=== PATIENT | male | born 1970 | race Caucasian/White ===

== ENCOUNTER 2022-10-02 09:16 | Inpatient (IN) ==
[2022-10-02] MEDS ORDERED: MoRPHine SULFATE 4 MG/ML 1 ML CARP\\VIAL IV STA (09:44)
[2022-10-02] MEDS ORDERED: SODIUM CHLORIDE 0.9% 1000ML 1,000 ML IV ONE (09:44)
[2022-10-02] MEDS ORDERED: ONDANSETRON INJ 2 MG/ML 2 ML VIAL IV STA (09:44)
--- NOTE | 2022-10-02 09:45 | Emergency Department Note ---
Impression & Plan Abdominal pain, lower ED Provider Note INFORMANT: Patient ED PROVIDER(S): Chemo Alberts DO CHIEF COMPLAINT: lower abd pain, nausea, vomiting,diarrhea PLAN: Disposition: Home Outpatient prescription management: none Consult: I spoke with the hospitalist, who will see the patient for admission/observation and further evaluation and consultation. Also spoke with surgery service who evaluated the patient in the ED. MEDICAL DECISION MAKING: This is a 52-year-old male who presents to the ED with a chief complaint of lower abdominal pain. He states that he has had the pain for about 16 hours. Initially felt like it was left lower quadrant like his previous diverticulitis but is actually bilateral in the lower abdomen now. The patient also reports nausea, vomiting and diarrhea that started around 8 PM last night. His last episode of each was around 6 AM this morning. He states that he just wanted to make sure that nothing ruptured in his abdomen. He has no other specific complaints at this time. No fevers. No urinary symptoms. The patient's exam r eveals some tenderness in the bilateral lower quadrants. No rebound. His vital signs are normal. Afebrile. The patient's CBC shows a mild leukocytosis of 12.2. Chemistry panel showed no electrolyte abnormality or kidney dysfunction. Lipase was negative. CT scan suggest mild diverticulitis. 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 I did have general surgery see the patient. They evaluated the patient. They did not feel the patient needs surgery but recommended some IV antibiotics for a day or so. The patient is agreeable to this. I did speak to the medicine service who admit the patient for IV antibiotic. A dose of IV Zosyn was administered here. Triage Nursing notes reviewed. Vital Signs: reviewed Prior /Outside records reviewed: none Differential diagnosis: Diverticulitis, appendicitis, gastroenteritis, bowel perforation, other Diagnostics, as interpreted by me: 12 lead ECG: none Cardiac Monitoring ordered: none Medical decision rules: none Imaging studies: CT scan of the abdomen pelvis: Mild diverticulitis. Procedures: none. Critical care: none. HPI: See MDM above. PAST MEDICAL HISTORY: See Below PAST SURGICAL HISTORY: See Below SOCIAL HISTORY: See Below HOME MEDICATIONS: See Below ALLERGIES: See Below VITALS: See Below PHYSICAL EXAMINATION: See MDM for positive findings otherwise unremarkable. CONSTITUTIONAL/VITAL SIGNS: Reviewed GENERAL:done as appropriate INTEGUMENTARY: done as appropriate HEAD: done as appropriate EYES: done as appropriate RESPIRATORY: done as appropriate CARDIOVASCULAR:done as appropriate GI/ABDOMEN:done as appropriate EXTREMITIES: done as appropriate NEUROLOGICAL: done as appropriate PSYCHIATRIC:done as appropriate MUSCULOSKELETAL:done as appropriate TRIAGE NURSING DOCUMENTATION REVIEWED. Past Med/Surg History Social History Smoking Status: Never smoker Tobacco Type: Cigarettes Feels Safe at Home: Yes Results & Data (ED) Vital Signs Vital Signs - 24 hr 10/02/22 09:21 10/02/22 09:35 10/02/22 09:50 Temperature 37.0 C Temperature Source Skin Pulse Rate 94 H 80 Pulse Rate [Right Finger] 85 Pulse Rate from SpO2 Sensor Pulse Rhythm Regular Pulse Rhythm [Right Finger] Pulse Strength Normal Pulse Strength [Right Finger] Respiratory Rate 20 18 Respiratory Effort / Characteristics Non-Labored Spontaneous Non-Labored Spontaneous Respiratory Depth Normal Normal Respiratory Pattern Regular Regular Blood Pressure 120/73 Blood Pressure [Left Arm] 121/83 Blood Pressure Mean 88 Blood Pressure Mean [Left Arm] 95 Blood Pressure Position [Left Arm] Semi-fowlers Pulse Oximetry 99 99 Oxygen Delivery Method Room Air Room Air Sepsis Recent Fever Within 48 Hours No Sepsis New/Unexplained Change in Mental Status N/A Sepsis Action Taken by Nursing No Action Required 10/02/22 09:59 10/02/22 10:00 10/02/22 09:45 Temperature Temperature Source Pulse Rate 75 82 Pulse Rate [Right Finger] 77 Pulse Rate from SpO2 Sensor 86 Pulse Rhythm Regular Pulse Rhythm [Right Finger] Regular Pulse Strength Pulse Strength [Right Finger] Normal Respiratory Rate 18 18 21 Respiratory Effort / Characteristics Non-Labored Spontaneous Respiratory Depth Normal Respiratory Pattern Regular Blood Pressure Blood Pressure [Left Arm] 110/68 Blood Pressure Mean Blood Pressure Mean [Left Arm] 82 Blood Pressure Position [Left Arm] Lying Pulse Oximetry 100 98 90 Oxygen Delivery Method Room Air Room Air Sepsis Recent Fever Within 48 Hours Sepsis New/Unexplained Change in Mental Status Sepsis Action Taken by Nursing 10/02/22 10:00 10/02/22 10:00 10/02/22 10:30 Temperature Temperature Source Pulse Rate 76 88 Pulse Rate [Right Finger] Pulse Rate from SpO2 Sensor 76 84 Pulse Rhythm Pulse Rhythm [Right Finger] Pulse Strength Pulse Strength [Right Finger] Respiratory Rate 19 17 Respiratory Effort / Characteristics Respiratory Depth Respiratory Pattern Blood Pressure 110/68 Blood Pressure [Left Arm] Blood Pressure Mean 82 Blood Pressure Mean [Left Arm] Blood Pressure Position [Left Arm] Pulse Oximetry 98 100 Oxygen Delivery Method Sepsis Recent Fever Within 48 Hours Sepsis New/Unexplained Change in Mental Status Sepsis Action Taken by Nursing 10/02/22 11:01 10/02/22 11:30 10/02/22 12:00 Temperature Temperature Source Pulse Rate 90 82 78 Pulse Rate [Right Finger] Pulse Rate from SpO2 Sensor 87 78 Pulse Rhythm Pulse Rhythm [Right Finger] Pulse Strength Pulse Strength [Right Finger] Respiratory Rate 15 14 23 Respiratory Effort / Characteristics Respiratory Depth Respiratory Pattern Blood Pressure Blood Pressure [Left Arm] Blood Pressure Mean Blood Pressure Mean [Left Arm] Blood Pressure Position [Left Arm] Pulse Oximetry 99 97 Oxygen Delivery Method Sepsis Recent Fever Within 48 Hours Sepsis New/Unexplained Change in Mental Status Sepsis Action Taken by Nursing 10/02/22 12:30 Temperature Temperature Source Pulse Rate 76 Pulse Rate [Right Finger] Pulse Rate from SpO2 Sensor 76 Pulse Rhythm Pulse Rhythm [Right Finger] Pulse Strength Pulse Strength [Right Finger] Respiratory Rate 23 Respiratory Effort / Characteristics Respiratory Depth Respiratory Pattern Blood Pressure Blood Pressure [Left Arm] Blood Pressure Mean Blood Pressure Mean [Left Arm] Blood Pressure Position [Left Arm] Pulse Oximetry 98 Oxygen Delivery Method Sepsis Recent Fever Within 48 Hours Sepsis New/Unexplained Change in Mental Status Sepsis Action Taken by Nursing Laboratory Data 10/02/22 09:50 10/02/22 09:50 Lab Results 10/02/22 10/02/22 Range/Units 09:50 09:50 WBC 12.21 H (4.8-10.8) K/ul RBC 5.01 (4.70-6.10) M/uL Hgb 15.8 (14.0-18.0) g/dl Hct 43.9 (42.0-52.0) % MCV 87.6 (80.0-100.0) fL MCH 31.5 (25.0-34.0) pg MCHC 36.0 (32.0-36.0) g/dL RDW Std Deviation 41.1 (36.4-46.3) fL RDW Coeff of Daniele 12.8 (11.5-14.5) % Plt Count 305 (130-400) K/uL MPV 9.3 L (9.4-12.4) fL Immature Gran % (Auto) 0.3 % Neut % (Auto) 93.3 % Lymph % (Auto) 1.8 % Zavala % (Auto) 4.4 % Eos % (Auto) 0.0 % Baso % (Auto) 0.2 % Neut # (Auto) 11.38 H (1.40-6.50) K/uL Lymph # (Auto) 0.22 L (1.2-3.4) K/uL Zavala # (Auto) 0.54 (0.11-0.59) K/uL Eos # (Auto) 0.00 (0-0.50) K/uL Baso # (Auto) 0.03 (0-0.2) K/uL Immature Gran # (Auto) 0.04 (0.01-0.20) K/uL Sodium 136 (136-145) mmol/L Potassium 4.3 (3.5-5.1) mmol/L Chloride 102 (98-107) mmol/L Carbon Dioxide 25 (21-32) mmol/L Anion Gap 9 (3-11) BUN 26 H (6-23) mg/dl Creatinine 1.26 (0.6-1.4) mg/dl Est Cr Clr Drug Dosing 68.6 ml/min Est GFR ( Amer) 75.5 ml/min Est GFR (Non-Af Amer) 65.1 ml/min BUN/Creatinine Ratio 20.6 H (10-20) Glucose 130 H (70-99(Fasting)) mg/dl Calcium 9.1 (8.5-10.1) mg/dl Total Bilirubin 0.9 (0.2-1.0) mg/dl AST 14 (13-39) U/L ALT 14 (7-52) U/L Alkaline Phosphatase 41 (34-104) U/L Total Protein 7.4 (6.0-8.3) gm/dl Albumin 4.5 (3.4-5.0) gm/dl Globulin 2.9 (2.5-4.0) gm/dl Albumin/Globulin Ratio 1.6 (0.9-2) Lipase 12 (11-82) U/L Administered Medications Discontinued Medications Sodium Chloride (Nss 1000ml) 1,000 mls @ 999 mls/hr IV .Q1H1M ONE Stop: 10/02/22 10:44 Last Infusion: 10/02/22 10:58 Dose: 0 mls/hr Documented By: Admin: 10/02/22 09:56 Dose: 999 mls/hr Documented By: Ioversol (Optiray 350 100ml) 89 ml IV ONCE ONE Stop: 10/02/22 11:40 Last Admin: 10/02/22 11:40 Dose: 89 ml Documented By: BILL Morphine Sulfate (Morphine Sulfate 4 Mg/Ml 1 Ml Carp\Vial) 4 mg IV NOW STA Stop: 10/02/22 09:45 Last Admin: 10/02/22 09:56 Dose: 4 mg Documented By: Ondansetron HCl (Ondansetron Inj 2 Mg/Ml 2 Ml Vial) 4 mg IV NOW STA Stop: 10/02/22 09:45 Last Admin: 10/02/22 09:56 Dose: 4 mg Documented By: Imaging Data Radiologist's Impression: Abdomen/Pelvis CT 10/02/22 09:[address] WITH IV CONTRAST CT DOSE: 323.43 mGy.cm HISTORY: Acute lower abdominal pain patient with history of colonic diverticulosis lower abd pain b/l TECHNIQUE: Multiaxial CT images of the abdomen and pelvis were performed following the IV administration of 89 cc of Optiray, A dose lowering technique was utilized adhering to the principles of ALARA. COMPARISON STUDY: None. FINDINGS: Clear lung bases. Unremarkable spleen, pancreas, gallbladder, adrenal glands and liver. Patency of the hepatic and portal veins. A millimeter cyst within the inferior pole left kidney. No hydronephrosis. Mild urinary bladder wall thickening with partial distention. Mild prostamegaly. Mild atherosclerosis of the abdominal aorta without aneurysm. No lymphadenopathy. Surgical clips of the scrotum. Trace free pelvic fluid. Colonic diverticulosis. Mild wall thickening the sigmoid colon with trace adjacent inflammatory stranding. There is a small focus of air within the sigmoid colon contiguous with a fluid-filled small sinus tract, image 286. No drainable fluid collection. Scattered small bowel air-fluid levels with a few mildly dilated loops measuring up to 3.3 cm. The appendix appears noninflamed. Unremarkable soft tissues. Severe L5-S1 intervertebral disc space narrowing. There is no acute fracture. IMPRESSION: 1. Mild acute diverticulitis with a small focus of extraluminal gas contiguous with a small sinus tract within the sigmoid mesocolon indicating acute on chronic disease. No drainable abscess. 2. Mildly dilated loops of small bowel with air-fluid levels may represent a reactive ileus or nonspecific enteritis. ACT 112: Negative or not required by law. The above report was generated using voice recognition software. It may contain grammatical, syntax or spelling errors. Electronically signed by: Zeke Levin M.D. 10/02/2022 12:31 PM Discharge Plan Visit Data Chief Complaint: Abdominal Pain Stated Complaint: ABDOMINAL PAIN,VOMITING,DEHYDRATION ED Provider: Chemo Alberts Discharge Problem: Abdominal pain, lower Patient Disposition: Being Evaluated by Hospitalist Forms Stand Alone Forms: [facility] Referrals Referrals: Leo Clements MD [Physician] -
[2022-10-02 10:38] LABS: Hematocrit (blood only) 43.9 % (42.0-52.0); Hemoglobin 15.8 g/dl (14.0-18.0); Mean Corpuscular Hemoglobin 31.5 pg (25.0-34.0); Mean Corpuscular Volume 87.6 fL (80.0-100.0); Mean Platelet Volume 9.3 fL (9.4-12.4); Platelet Count 305 K/uL (130-400); RDW Coefficient of Variation 12.8 % (11.5-14.5); RDW Standard Deviation 41.1 fL (36.4-46.3); Red Blood Count 5.01 M/uL (4.70-6.10); White Blood Count 12.21 K/ul (4.8-10.8)
[2022-10-02 10:55] LABS: Albumin Globulin Ratio 1.6 (0.9-2); Albumin Level 4.5 gm/dl (3.4-5.0); BUN Creatinine Ratio 20.6 (10-20); Basophils # (auto) 0.03 K/uL (0-0.2); Basophils % (auto) 0.2 %; Bilirubin,Total 0.9 mg/dl (0.2-1.0); Calcium 9.1 mg/dl (8.5-10.1); Creatinine Clr Calc Pharmacy 68.6 ml/min; Est GFR (African American) 75.5 ml/min; Est GFR (Non-African American) 65.1 ml/min; Globulin 2.9 gm/dl (2.5-4.0); Immature Granulocytes # (auto) 0.04 K/uL (0.01-0.20); Immature Granulocytes % (auto) 0.3 %; Lymphocytes # (auto) 0.22 K/uL (1.2-3.4); Lymphocytes % (auto) 1.8 %; Monocytes # (auto) 0.54 K/uL (0.11-0.59); Monocytes % (auto) 4.4 %; Neutrophils # (auto) 11.38 K/uL (1.40-6.50); Neutrophils % (auto) 93.3 %; Potassium 4.3 mmol/L (3.5-5.1); Total Protein 7.4 gm/dl (6.0-8.3)
[2022-10-02] MEDS ORDERED: OPTIRAY 350 100ml IV ONE (11:39)
--- NOTE | 2022-10-02 12:32 | CT Scan Report ---
ABDOMEN AND PELVIS CT WITH IV CONTRAST CT DOSE: 323.43 mGy.cm HISTORY: Acute lower abdominal pain patient with history of colonic diverticulosis lower abd pain b/ l TECHNIQUE: Multiaxial CT images of the abdomen and pelvis were performed following the IV administrat ion of 89 cc of Optiray, A dose lowering technique was utilized adhering to the principles of ALARA. COMPARISON STUDY: None. FINDINGS: Clear lung bases. Unremarkable spleen, pancreas, gallbladder, adrenal glands and liver. Pat ency of the hepatic and portal veins. A millimeter cyst within the inferior pole left kidney. No hydr onephrosis. Mild urinary bladder wall thickening with partial distention. Mild prostamegaly. Mild ath erosclerosis of the abdominal aorta without aneurysm. No lymphadenopathy. Surgical clips of the scrot um. Trace free pelvic fluid. Colonic diverticulosis. Mild wall thickening the sigmoid colon with trace ad jacent inflammatory stranding. There is a small focus of air within the sigmoid colon contiguous with a fluid-filled small sinus tract, image 286. No drainable fluid collection. Scattered small bowel ai r-fluid levels with a few mildly dilated loops measuring up to 3.3 cm. The appendix appears noninflam ed. Unremarkable soft tissues. Severe L5-S1 intervertebral disc space narrowing. There is no acute fr acture. IMPRESSION: 1. Mild acute diverticulitis with a small focus of extraluminal gas contiguous with a small sinus tra ct within the sigmoid mesocolon indicating acute on chronic disease. No drainable abscess. 2. Mildly dilated loops of small bowel with air-fluid levels may represent a reactive ileus or nonspe cific enteritis. ACT 112: Negative or not required by law. The above report was generated using voice recognition software. It may contain grammatical, syntax o r spelling errors. Electronically signed by: Zeke Levin M.D. 10/02/2022 12:31 PM
[2022-10-02] MEDS ORDERED: PIPERACILLIN/TAZOBACTAM 4.5 GM/120 ML BAG IV ONE (13:32)
--- NOTE | 2022-10-02 14:14 | XRay Report ---
SINGLE VIEW CHEST CLINICAL HISTORY: Respiratory illness FINDINGS: An AP, portable, upright chest radiograph is obtained. No prior studies are available for c omparison at the time of dictation. The cardiomediastinal silhouette is unremarkable. The lungs and p leural spaces are clear. No pneumothorax is seen. The bony thorax is grossly intact. IMPRESSION: No active disease in the chest. ACT 112: Negative or not required by law. Electronically signed by: Albino Galindo M.D. 10/02/2022 2:13 PM
--- NOTE | 2022-10-02 14:27 | History & Physical Report ---
Date of Service October 02, 2022 Assessment & Plan (1) Acute diverticulitis: (2) Abdominal pain, lower: Plan: This is a 52-year-old male with PMH of GERD, history of diverticulosis, depression and other medical problems as below who presents with lower abdominal pain since yesterday and was found to have acute diverticulitis. Nausea, vomiting, diarrhea and lower abdominal pain since last evening VSS, afebrile, mild leukocytosis of 12.21k CT abd/pelvis with diverticulitis with extraluminal gas and possible sinus tract to mesocolon. Also possible reactive ileus vs nonspecific enteritis Evaluated by general surgery given abnormal CT findings of extraluminal gas- recommend admission for continued IV abx, NPO for now but plan to advance diet to clears in AM Continue Zosyn, NPO for now, gentle IV fluids, pain control with schedyled IV Tylenol, trying to limit narcotic use given possible ileus Currently scheduled for outpatient colonoscopy at the end of October with Dr. Amin that will need to be delayed (3) Insomnia: Plan: Zolpidem HS PRN DVT Ppx: SQ lovenox Code status: FULL PCP: BALJINDER Bahena Dispo: Admitted to med/surg Patient seen in collaboration with Dr. Kenendy. Please see addendum. A total of 60 minutes were spent with greater than 50% of that time face to face with the patient, personally reviewing all current laboratories, imaging studies, past medication reconciliation, outpatient chart review, and discussion with specialists to collaborate care for the patient with attending and utilization of translation services. Please see attending documentation for corrections and/or additions. History of Present Illness Chief Complaint: Lower abdominal pain Primary Care Provider: Shawanda Murillo PA-C This is a 52-year-old male with PMH of GERD, history of diverticulosis, depression and other medical problems as below who presents with lower abdominal pain since yesterday. Pain is located mostly in left lower abdomen described as sharp but has since started to radiate towards right as well and is now across lower abdomen. Associated with nausea, multiple bouts of emesis overnight and diarrhea. Denies any melena or hematochezia. Last episode of vomiting and diarrhea occurred this morning at 5 AM. History of diverticulitis in the past but is usually more mild and he can stay home with symptoms resolving with clear liquid diet. However due to severity of pain as well as persistent nausea and vomiting, patient presented to ED for further evaluation. Pain improved to 2/10 after morphine. No longer experiencing nausea. Recent life stressors with kids returning to college and admittedly has not slept much in the past 3 nights. Denies any fever, chills, lightheadedness, headache, chest pain, shortness of breath, dysuria or constipation. Only medication is trazodone at night for sleep. Vapes marijuana. Allergies Allergy/AdvReac Type Severity Reaction Status Date / Time No Known Allergies Allergy Verified 10/02/22 19:48 Home Medications Medication Instructions Recorded Confirmed Type trazodone 50 mg tablet 50 mg PO UD 10/02/22 10/02/22 History Past Med/Surg History Medical History (Updated 10/02/22 @ 15:49 by Marion Sawyer PA-C) Depression GERD (gastroesophageal reflux disease) Insomnia Surgical History History of colonoscopy with polypectomy Family History Other Diabetes Social History (Updated 10/02/22 @ 15:47 by Marion Sawyer PA-C) Smoking Status: Never smoker Tobacco Type: Cigarettes and Smokeless Tobacco (Dip or Chew) Second Hand Exposure: No; Do You Dip or Chew Tobacco: No; Tobacco Cessation Education Requested by Patient: No Hx Alcohol Use: No Hx Substance Use: Yes Prescribed Medications: Marijuana Last Used Substance: Days (ago) Preferred Language: Lithuanian Communication Ability: Effective Charity Fundraiser Required: No Beliefs That Will Affect Care: None Current Living Situation: Family Other Information That Helps Us Care for You: No Feels Safe at Home: Yes Safety Concerns: Feels Safe At This Time Assistive Devices: None Review of Systems Review of Systems: At least ten systems reviewed and negative except as noted in the HPI. Physical Exam Physical Exam: General Appearance: WD/WN, vitals as above, NAD, lying in bed, appears anxious Head: normocephalic, atraumatic Eyes: normal inspection, PERRL, conjunctivae normal, anicteric sclerae ENT: external ear and nose normal, oropharynx normal Neck: normal visual inspection, trachea midline, no thyromegaly Respiratory: normal respiratory effort, lungs clear to auscultation, no wheeze, rales, rhonchi. No accessory muscle use Cardiovascular: regular rate, rhythm, no murmur, normal peripheral pulses, no BLE edema. Vessels: no JVD Chest: normal inspection of chest Abdomen/GI: hypoactive bowel sounds, soft, TTP across lower abdomen, no hepatosplenomegaly Extremities/Musculoskeletal: no cyanosis or clubbing, extremities motor strength 5/5 Neurologic: PERRL, EOMI, accommodation nl, no face palsy, no dysarthria, CN's II-XI intact bilaterally and moves all extremities Psychiatric: A+Ox3, euthymic affect Skin: no rashes, normal color, warm/dry Results & Data Results & Data Vital Signs (Past 12 Hours) Vital Signs Temp Pulse Pulse Resp BP BP Pulse Ox 10/02/22 12:30 76 23 98 10/02/22 12:00 78 23 97 10/02/22 11:30 82 14 10/02/22 11:01 90 15 99 10/02/22 10:30 88 17 100 10/02/22 10:00 76 19 98 10/02/22 10:00 110/68 10/02/22 09:45 82 21 90 10/02/22 10:00 77 18 110/68 98 10/02/22 09:59 75 18 100 10/02/22 09:50 80 10/02/22 09:35 85 18 121/83 99 10/02/22 09:21 37.0 C 94 H 20 120/73 99 O2 Del Method 10/02/22 12:30 10/02/22 12:00 10/02/22 11:30 10/02/22 11:01 10/02/22 10:30 10/02/22 10:00 10/02/22 10:00 10/02/22 09:45 10/02/22 10:00 Room Air 10/02/22 09:59 Room Air 10/02/22 09:50 10/02/22 09:35 Room Air 10/02/22 09:21 Room Air Laboratory Results Short CBC 10/02/22 Range/Units 09:50 WBC 12.21 H (4.8-10.8) K/ul Hgb 15.8 (14.0-18.0) g/dl Hct 43.9 (42.0-52.0) % Plt Count 305 (130-400) K/uL BMP 10/02/22 09:50 Sodium 136 Potassium 4.3 Chloride 102 Carbon Dioxide 25 BUN 26 H Creatinine 1.26 Glucose 130 H Calcium 9.1 Liver Function 10/02/22 Range/Units 09:50 Total Bilirubin 0.9 (0.2-1.0) mg/dl AST 14 (13-39) U/L ALT 14 (7-52) U/L Alkaline Phosphatase 41 (34-104) U/L Albumin 4.5 (3.4-5.0) gm/dl Diagnostic Findings Abdomen/Pelvis CT 10/02/22 09:[address] WITH IV CONTRAST CT DOSE: 323.43 mGy.cm HISTORY: Acute lower abdominal pain patient with history of colonic diverticulosis lower abd pain b/l TECHNIQUE: Multiaxial CT images of the abdomen and pelvis were performed following the IV administration of 89 cc of Optiray, A dose lowering technique was utilized adhering to the principles of ALARA. COMPARISON STUDY: None. FINDINGS: Clear lung bases. Unremarkable spleen, pancreas, gallbladder, adrenal glands and liver. Patency of the hepatic and portal veins. A millimeter cyst within the inferior pole left kidney. No hydronephrosis. Mild urinary bladder wall thickening with partial distention. Mild prostamegaly. Mild atherosclerosis of the abdominal aorta without aneurysm. No lymphadenopathy. Surgical clips of the scrotum. Trace free pelvic fluid. Colonic diverticulosis. Mild wall thickening the sigmoid colon with trace adjacent inflammatory stranding. There is a small focus of air within the sigmoid colon contiguous with a fluid-filled small sinus tract, image 286. No drainable fluid collection. Scattered small bowel air-fluid levels with a few mildly dilated loops measuring up to 3.3 cm. The appendix appears noninflamed. Unremarkable soft tissues. Severe L5-S1 intervertebral disc space narrowing. There is no acute fracture. IMPRESSION: 1. Mild acute diverticulitis with a small focus of extraluminal gas contiguous with a small sinus tract within the sigmoid mesocolon indicating acute on chronic disease. No drainable abscess. 2. Mildly dilated loops of small bowel with air-fluid levels may represent a reactive ileus or nonspecific enteritis. ACT 112: Negative or not required by law. The above report was generated using voice recognition software. It may contain grammatical, syntax or spelling errors. Electronically signed by: Zeke Levin M.D. 10/02/2022 12:31 PM Chest X-Ray 10/02/22 13:45 SINGLE VIEW CHEST CLINICAL HISTORY: Respiratory illness FINDINGS: An AP, portable, upright chest radiograph is obtained. No prior studies are available for comparison at the time of dictation. The cardiomediastinal silhouette is unremarkable. The lungs and pleural spaces are clear. No pneumothorax is seen. The bony thorax is grossly intact. IMPRESSION: No active disease in the chest. ACT 112: Negative or not required by law. Electronically signed by: Albino Galindo M.D. 10/02/2022 2:13 PM Code Status & VTE Plan VTE Prophylaxis Plan VTE Prophylaxis will be ordered: Yes Supervising Physician Co-Signing Physician Notes I have seen and examined the patient and have discussed the case with the provider above. I agree with the assessment and plan as stated. 52 yo M with severe lower abdominal pain admitted for acute diverticulitis, which he reports having in the past. He was vomiting, but is feeling better with limited to no food. Surgery saw him for a finding of extraluminal gas and possible sinus tract to mesocolon seen on imaging. He doesn't appears sepsis, and doesn't appear to have peritonitis. He reports feeling dehydrated and was trying to "flush out his system yesterday" with oral fluids and Metamucil, which he re ports likely contributed to making him sick. He reports feeling better with the intravenous fluids. Physical exam reveals a hemodynamically stable and afebrile man in NAD. Pulmonary auscultation is clear throughout and cardiac exam reveals S1/2 heard without m/g/r. He has no edema and examines as euvolemic to dry. Abdomen is tender in suprapubic region. There is no distension. 52 yo M with acute diverticulitis with microperforation. Agree with bowel rest, IVF, IV antibiotics and appreciate surgery recommendations. Reassess in am in order to consider to advance diet. DO Brent
--- NOTE | 2022-10-02 14:32 | Surgery Consultation ---
Date of Consultation October 02, 2022 Assessment & Plan (1) Acute diverticulitis: 52 year-old male with less than 24 hours history of severe lower bilateral abdominal pain with nausea, vomiting and diarrhea with CT scan showing diverticulitis with extraluminal gas and possible sinus tract to mesocolon. Mild leukocytosis of 12k, afebrile, abdomen soft, tender bilateral lower quadrants without peritonitis. Given the evidence of extraluminal gas, severe pain prior to presentation to ER, and tenderness on exam discussed with patient option of observation in hospital with at least 24 hours of IV antibiotics vs outpatient treatment with oral abx for 14 days. He would like to stay for IV antibiotics given the severity last evening. Given the microperforation with extraluminal gas believe this is appropriate course. Can likely start advancing diet tomorrow morning with clear liquids. Will need his outpatient colonoscopy delayed as it is scheduled end october. Discussed with hospitalist Discussed with Dr. Silva who agrees with above. Plan I have seen and examined the patient agree with the above assessment and plan. He will be admitted to the hospital for IV antibiotics and observation. No surgical intervention is required at this time. History of Present Illness Reason for Consultation: Diverticulitis with foci of extraluminal gas Requesting Physician: Chemo Alberts MD Attending Physician: Chemo Alberts MD History of Present Illness Alfie is a 52 year-old male who presented to emergency room with complaint of nausea, vomiting, diarrhea, and severe abdominal pain that began last evening around 8 pm. Thought he had diverticulitis but was concerned about perforation given the severe pain. History of episode of diverticulitis a few years ago treated with oral antibiotics. Has colonoscopy scheduled for october at [facility] with Dr. Amin. He states that he was feeling fine prior to the vomiting and diarrhea last evening but did lose some of his appetite. No fever or chills. No chest pain or shortness of breath. No prior episodes of complicated diverticulitis. No blood thinning agents. CT scan of abdomen and pelvis showing mild sigmoid diverticulitis with foci of extraluminal gas and possible sinus tract to the mesocolon. He is currently rating his abdominal pain a 6/10 after Morphine administration. Pain was 10/10 severe last night. Allergies Allergy/AdvReac Type Severity Reaction Status Date / Time No Known Allergies Allergy Verified 10/02/22 19:48 Home Medications Medication Instructions Recorded Confirmed Type trazodone 50 mg tablet 50 mg PO UD 10/02/22 10/02/22 History Saccharomyces boulardii 250 mg 250 mg PO DAILY #10 caps 10/03/22 Rx capsule (Florastor) ciprofloxacin HCl 500 mg tablet 500 mg PO Q12H #20 tabs 10/03/22 Rx (Cipro) metronidazole 500 mg tablet 500 mg PO Q8H #30 tabs 10/03/22 Rx Patient History Medical History (Updated 10/02/22 @ 15:49 by aMrion Sawyer PA-C) Depression GERD (gastroesophageal reflux disease) Insomnia Surgical History History of colonoscopy with polypectomy Family History Other Diabetes Social History (Updated 10/02/22 @ 15:47 by Marion Sawyer PA-C) Smoking Status: Never smoker Tobacco Type: Cigarettes and Smokeless Tobacco (Dip or Chew) Second Hand Exposure: No; Do You Dip or Chew Tobacco: No; Tobacco Cessation Education Requested by Patient: No Hx Alcohol Use: No Hx Substance Use: Yes Prescribed Medications: Marijuana Last Used Substance: Days (ago) Preferred Language: Malay Communication Ability: Effective Soloist Dancer Required: No Beliefs That Will Affect Care: None Current Living Situation: Family Other Information That Helps Us Care for You: No Feels Safe at Home: Yes Safety Concerns: Feels Safe At This Time Assistive Devices: None Physical Exam Constitutional: WD/WN, vitals as above cooperative and comfortable; no acute distress, not ill appearing, not diaphoretic and not lethargic Neck: normal visual inspection and trachea midline Respiratory: normal respiratory effort, lungs clear to auscultation Cardiovascular: RRR, no murmur, no edema Gastrointestinal (Abdomen): Inspection/Auscultation: abdomen normal to inspection; abdomen not distended and no abdominal surgical scar Percussion/Palpation: + abdomen tender (bilateral lower quadrants), + guarding (voluntary on deep palpation lower quadrants) and abdomen soft; abdomen not firm no peritonitis or rebound Skin: no rashes, warm and dry Psychiatric: Orientation: alert and oriented x 3 Results & Data Vital Signs (Past 12 Hours) Vital Signs Temp Pulse Pulse Resp BP BP Pulse Ox 10/02/22 12:30 76 23 98 10/02/22 12:00 78 23 97 10/02/22 11:30 82 14 10/02/22 11:01 90 15 99 10/02/22 10:30 88 17 100 10/02/22 10:00 76 19 98 10/02/22 10:00 110/68 10/02/22 09:45 82 21 90 10/02/22 10:00 77 18 110/68 98 10/02/22 09:59 75 18 100 10/02/22 09:50 80 10/02/22 09:35 85 18 121/83 99 10/02/22 09:21 37.0 C 94 H 20 120/73 99 O2 Del Method 10/02/22 12:30 10/02/22 12:00 10/02/22 11:30 10/02/22 11:01 10/02/22 10:30 10/02/22 10:00 10/02/22 10:00 10/02/22 09:45 10/02/22 10:00 Room Air 10/02/22 09:59 Room Air 10/02/22 09:50 10/02/22 09:35 Room Air 10/02/22 09:21 Room Air Laboratory Results 10/02/22 10/02/22 10/02/22 Range/Units 14:10 09:50 09:50 WBC 12.21 H (4.8-10.8) K/ul RBC 5.01 (4.70-6.10) M/uL Hgb 15.8 (14.0-18.0) g/dl Hct 43.9 (42.0-52.0) % MCV 87.6 (80.0-100.0) fL MCH 31.5 (25.0-34.0) pg MCHC 36.0 (32.0-36.0) g/dL RDW Std Deviation 41.1 (36.4-46.3) fL RDW Coeff of Daniele 12.8 (11.5-14.5) % Plt Count 305 (130-400) K/uL MPV 9.3 L (9.4-12.4) fL Immature Gran % (Auto) 0.3 % Neut % (Auto) 93.3 % Lymph % (Auto) 1.8 % [place] % (Auto) 4.4 % Eos % (Auto) 0.0 % Baso % (Auto) 0.2 % Neut # (Auto) 11.38 H (1.40-6.50) K/uL Lymph # (Auto) 0.22 L (1.2-3.4) K/uL [place] # (Auto) 0.54 (0.11-0.59) K/uL Eos # (Auto) 0.00 (0-0.50) K/uL Baso # (Auto) 0.03 (0-0.2) K/uL Immature Gran # (Auto) 0.04 (0.01-0.20) K/uL Sodium 136 (136-145) mmol/L Potassium 4.3 (3.5-5.1) mmol/L Chloride 102 (98-107) mmol/L Carbon Dioxide 25 (21-32) mmol/L Anion Gap 9 (3-11) BUN 26 H (6-23) mg/dl Creatinine 1.26 (0.6-1.4) mg/dl Est Cr Clr Drug Dosing 68.6 ml/min Est GFR ( Amer) 75.5 ml/min Est GFR (Non-Af Amer) 65.1 ml/min BUN/Creatinine Ratio 20.6 H (10-20) Glucose 130 H (70-99(Fasting)) mg/dl Calcium 9.1 (8.5-10.1) mg/dl Total Bilirubin 0.9 (0.2-1.0) mg/dl AST 14 (13-39) U/L ALT 14 (7-52) U/L Alkaline Phosphatase 41 (34-104) U/L Total Protein 7.4 (6.0-8.3) gm/dl Albumin 4.5 (3.4-5.0) gm/dl Globulin 2.9 (2.5-4.0) gm/dl Albumin/Globulin Ratio 1.6 (0.9-2) Lipase 12 (11-82) U/L SARS-CoV-2, RNA, NAAT Pending Diagnostic Findings ABDOMEN AND PELVIS CT WITH IV CONTRAST CT DOSE: 323.43 mGy.cm HISTORY: Acute lower abdominal pain patient with history of colonic diverticulos is lower abd pain b/l TECHNIQUE: Multiaxial CT images of the abdomen and pelvis were performed following the IV administration of 89 cc of Optiray, A dose lowering technique was utilized adhering to the principles of ALARA. COMPARISON STUDY: None. FINDINGS: Clear lung bases. Unremarkable spleen, pancreas, gallbladder, adrenal glands and liver. Patency of the hepatic and portal veins. A millimeter cyst within the inferior pole left kidney. No hydronephrosis. Mild urinary bladder wall thickening with partial distention. Mild prostamegaly. Mild atherosclerosis of the abdominal aorta without aneurysm. No lymphadenopathy. Surgical clips of the scrotum. Trace free pelvic fluid. Colonic diverticulosis. Mild wall thickening the sigmoid colon with trace adjacent inflammatory stranding. There is a small focus of air within the sigmoid colon contiguous with a fluid-filled small sinus tract, image 286. No drainable fluid collection. Scattered small bowel air-fluid levels with a few mildly dilated loops measuring up to 3.3 cm. The appendix appears noninflamed. Unremarkable soft tissues. Severe L5-S1 intervertebral disc space narrowing. There is no acute fracture. IMPRESSION: 1. Mild acute diverticulitis with a small focus of extraluminal gas contiguous with a small sinus tract within the sigmoid mesocolon indicating acute on chronic disease. No drainable abscess. 2. Mildly dilated loops of small bowel with air-fluid levels may represent a reactive ileus or nonspecific enteritis.
[2022-10-02] MEDS: Patient's ALLERGY Info needs ENTERED SCH ×9 (15:20→23:33)
[2022-10-02] MEDS ORDERED: ZOLPIDEM TARTRATE 5 MG TAB PO PRN (15:50)
[2022-10-02] MEDS: ACETAMINOPHEN 1,000 MG/100 ML VIAL IV SCH ×2 (16:44→22:39)
[2022-10-02] MEDS ORDERED: ONDANSETRON INJ 2 MG/ML 2 ML VIAL IV PRN (17:55)
[2022-10-02] MEDS: SODIUM CHLORIDE 0.9% 1000ML 1,000 ML IV SCH (18:43)
[2022-10-02 19:45] LABS: Appearance Urine Clear (Clear); Bacteria Urine Automated Negative (Negative); Bilirubin Urine Negative (Negative); Blood Urine 1+ (Negative); Color Urine Dark Yellow; Glucose Urine UA Negative (Negative); Ketones Urine Trace (Negative); Leukocyte Esterase Urine Negative (Negative); Nitrite Urine Negative (Negative); Protein Urine Trace (Negative); RBC Urine Automated 0-4 /hpf (0-4); Specific Gravity Urine > 1.045 (1.000-1.030); Urobilinogen Urine Negative (Negative)
[2022-10-02] MEDS: PIPERACILLIN/TAZOBACTAM 3.375 GM in DEXTROSE 5% 100 ML IV SCH (22:33)
[2022-10-03] MEDS: PIPERACILLIN/TAZOBACTAM 3.375 GM in DEXTROSE 5% 100 ML IV SCH ×2 (06:32→13:40)
[2022-10-03 06:43] LABS: Hematocrit (blood only) 41.5 % (42.0-52.0); Mean Corpuscular Hemoglobin 30.5 pg (25.0-34.0); Mean Corpuscular Hgb Conc 33.7 g/dL (32.0-36.0); Mean Corpuscular Volume 90.4 fL (80.0-100.0); Mean Platelet Volume 9.4 fL (9.4-12.4); Platelet Count 264 K/uL (130-400); RDW Coefficient of Variation 12.7 % (11.5-14.5); RDW Standard Deviation 42.1 fL (36.4-46.3); Red Blood Count 4.59 M/uL (4.70-6.10); White Blood Count 8.35 K/ul (4.8-10.8)
[2022-10-03 06:52] LABS: BUN Creatinine Ratio 18.2 (10-20); Calcium 8.9 mg/dl (8.5-10.1); Creatinine Clr Calc Pharmacy 78.6 ml/min; Est GFR (Non-African American) 76.8 ml/min
[2022-10-03] MEDS: SODIUM CHLORIDE 0.9% 1000ML 1,000 ML IV SCH (08:34)
[2022-10-03] MEDS: ACETAMINOPHEN 1,000 MG/100 ML VIAL IV SCH (08:34)
--- NOTE | 2022-10-03 11:09 | Surgery Progress Note ---
Date of Service October 03, 2022 Assessment & Plan (1) Acute diverticulitis: Plan: 52 year-old male presented to ED on 10/02/22 with less than 24 hours history of severe lower bilateral abdominal pain with nausea, vomiting and diarrhea with CT scan showing diverticulitis with extraluminal gas and possible sinus tract to mesocolon. Mild leukocytosis of 12k, afebrile, abdomen soft, tender bilateral lower quadrants without peritonitis. 10/03/2022: afebrile, leukocytosis resolved abdominal pain much improved, mild pain/soreness in LLQ no n,v Plan: Advance diet as tolerated to low fiber Okay for discharge later today as he will have received 24 hours IV ABx and clinically much improved 10 days of oral cipro/flagyl Outpatient colonoscopy with Dr. Amin and Yennifer guzman likely will need to be delayed (scheduled for end october) Dr. arriola has seen and examined pt, agrees with above. Admission and Anticipated Discharge Date Admission Date: October 02, 2022 Subjective feeling much better today minimal pain in the lower abdomen passing gas ordered clears for breakfast Physical Exam Constitutional: WD/WN, vitals as above no acute distress and not ill appearing Respiratory: normal respiratory effort, lungs clear to auscultation Cardiovascular: RRR, no murmur, no edema Gastrointestinal (Abdomen): Inspection/Auscultation: abdomen normal to inspection and normal bowel sounds; abdomen not distended Percussion/Palpation: + abdomen tender (mild tenderness in LLQ, much improved) and abdomen soft; no guarding and abdomen not rigid Skin: no rashes, warm and dry Psychiatric: A+Ox3, euthymic affect Results & Data Vital Signs (Past 12 Hours) Vital Signs Temp Pulse Resp BP Pulse Ox O2 Del Method 10/03/22 07:30 36.8 C 65 16 117/73 97 Room Air Laboratory Results 10/03/22 10/03/22 10/02/22 Range/Units 05:58 05:58 18:55 WBC 8.35 (4.8-10.8) K/ul RBC 4.59 L (4.70-6.10) M/uL Hgb 14.0 (14.0-18.0) g/dl Hct 41.5 L (42.0-52.0) % MCV 90.4 (80.0-100.0) fL MCH 30.5 (25.0-34.0) pg MCHC 33.7 (32.0-36.0) g/dL RDW Std Deviation 42.1 (36.4-46.3) fL RDW Coeff of Daniele 12.7 (11.5-14.5) % Plt Count 264 (130-400) K/uL MPV 9.4 (9.4-12.4) fL Sodium 139 (136-145) mmol/L Potassium 4.0 (3.5-5.1) mmol/L Chloride 106 (98-107) mmol/L Carbon Dioxide 28 (21-32) mmol/L Anion Gap 5 (3-11) BUN 20 (6-23) mg/dl Creatinine 1.10 (0.6-1.4) mg/dl Est Cr Clr Drug Dosing 78.6 ml/min Est GFR ( Amer) 89.0 ml/min Est GFR (Non-Af Amer) 76.8 ml/min BUN/Creatinine Ratio 18.2 (10-20) Glucose 94 (70-99(Fasting)) mg/dl Calcium 8.9 (8.5-10.1) mg/dl Urine Color Dark Yellow Urine Appearance Clear (Clear) Urine pH 6.0 (4.5-7.5) Ur Specific [place] > 1.045 H (1.000-1.030) Urine Protein Trace H (Negative) Urine Glucose (UA) Negative (Negative) Urine Ketones Trace H (Negative) Urine Blood 1+ H (Negative) Urine Nitrite Negative (Negative) Urine Bilirubin Negative (Negative) Urine Urobilinogen Negative (Negative) Ur Leukocyte Esterase Negative (Negative) Urine WBC (Auto) 1-5 (0-5) /hpf Urine RBC (Auto) 0-4 (0-4) /hpf U Hyaline Cast (Auto) 1-5 (0-5) /lpf U Epithel Cells (Auto) 10-20 H (0-5) /lpf Urine Bacteria (Auto) Negative (Negative) SARS-CoV-2, RNA, NAAT (NEGATIVE) 10/02/22 Range/Units 14:10 WBC (4.8-10.8) K/ul RBC (4.70-6.10) M/uL Hgb (14.0-18.0) g/dl Hct (42.0-52.0) % MCV (80.0-100.0) fL MCH (25.0-34.0) pg MCHC (32.0-36.0) g/dL RDW Std Deviation (36.4-46.3) fL RDW Coeff of Daniele (11.5-14.5) % Plt Count (130-400) K/uL MPV (9.4-12.4) fL Sodium (136-145) mmol/L Potassium (3.5-5.1) mmol/L Chloride (98-107) mmol/L Carbon Dioxide (21-32) mmol/L Anion Gap (3-11) BUN (6-23) mg/dl Creatinine (0.6-1.4) mg/dl Est Cr Clr Drug Dosing ml/min Est GFR ( Amer) ml/min Est GFR (Non-Af Amer) ml/min BUN/Creatinine Ratio (10-20) Glucose (70-99(Fasting)) mg/dl Calcium (8.5-10.1) mg/dl Urine Color Urine Appearance (Clear) Urine pH (4.5-7.5) Ur Specific [place] (1.000-1.030) Urine Protein (Negative) Urine Glucose (UA) (Negative) Urine Ketones (Negative) Urine Blood (Negative) Urine Nitrite (Negative) Urine Bilirubin (Negative) Urine Urobilinogen (Negative) Ur Leukocyte Esterase (Negative) Urine WBC (Auto) (0-5) /hpf Urine RBC (Auto) (0-4) /hpf U Hyaline Cast (Auto) (0-5) /lpf U Epithel Cells (Auto) (0-5) /lpf Urine Bacteria (Auto) (Negative) SARS-CoV-2, RNA, NAAT NEGATIVE (NEGATIVE)
--- NOTE | 2022-10-03 12:02 | Discharge Summary ---
Discharge Summary Date of Service October 03, 2022 Notes For Next Care Provider Patient admitted with acute diverticulitis. He was seen and evaluated by general surgery. Treated conservatively with 24 hours of IV antibiotics and will be discharged on 10-day course of Cipro and Flagyl. He has scheduled colonoscopy at the end of October which will need to be delayed. Medication Changes From Visit Ciprofloxacin 500 mg every twice daily for 10 days, next dose evening of 10/03/2022. Metronidazole 500 mg every 3 times a day for 10 days, next dose evening of 10/03/2022. Take antibiotics in entirety. Florastor 250mg once daily for GI health - This is a probiotic Admission HPI Per Admitting Provider This is a 52-year-old male with PMH of GERD, history of diverticulosis, depression and other medical problems as below who presents with lower abdominal pain since yesterday. Pain is located mostly in left lower abdomen described as sharp but has since started to radiate towards right as well and is now across lower abdomen. Associated with nausea, multiple bouts of emesis overnight and diarrhea. Denies any melena or hematochezia. Last episode of vomiting and diarrhea occurred this morning at 5 AM. History of diverticulitis in the past but is usually more mild and he can stay home with symptoms resolving with clear liquid diet. However due to severity of pain as well as persistent nausea and vomiting, patient presented to ED for further evaluation. Pain improved to 2/10 after morphine. No longer experiencing nausea. Recent life stressors with kids returning to college and admittedly has not slept much in the past 3 nights. Denies any fever, chills, lightheadedness, headache, chest pain, shortness of breath, dysuria or constipation. Only medication is trazodone at night for sleep. Vapes marijuana. Admission Exam Per Admitting Provider General Appearance:WD/WN, vitals as above, NAD, lying in bed, appears anxious Head: normocephalic, atraumatic Eyes:normal inspection, PERRL, conjunctivae normal, anicteric sclerae ENT: external ear and nose normal, oropharynx normal Neck: normal visual inspection, trachea midline, no thyromegaly Respiratory:normal respiratory effort, lungs clear to auscultation, no wheeze, rales, rhonchi. No accessory muscle use Cardiovascular: regular rate, rhythm, no murmur, normal peripheral pulses, no BLE edema. Vessels: no JVD Chest: normal inspection of chest Abdomen/GI: hypoactive bowel sounds, soft, TTP across lower abdomen, no hepatosplenomegaly Extremities/Musculoskeletal: no cyanosis or clubbing, extremities motor strength 5/5 Neurologic: PERRL, EOMI, accommodation nl, no face palsy, no dysarthria, CN's II-XI intact bilaterally and moves all extremities Psychiatric:A+Ox3, euthymic affect Skin: no rashes, normal color, warm/dry Principal Dx & Hospital Course #1 = Principal Diagnosis (1) Acute diverticulitis: (2) Abdominal pain, lower: This is a 52-year-old male with PMH of GERD, history of diverticulosis, depression and other medical problems as below who presents with lower abdominal pain x 1 day and was found to have acute diverticulitis. He remained hemodynamically stable and did have a mild leukocytosis. CT scan of abdomen pelvis on admission revealed acute diverticulitis with extraluminal gas and possible sinus tract mesocolon. Also possible reactive ileus versus nonspecific enteritis noted. He was seen and evaluated by general surgery who recommended admission for 24 hours of IV antibiotics and n.p.o. status. His diet was advanced to clears and eventual low fiber. He is tolerating without difficulty. General surgery recommend additional 10 days of oral antibiotics with ciprofloxacin and Flagyl. He does have a scheduled outpatient colonoscopy the end of October with Dr. Amin which will need to be delayed. His hospital course otherwise was unremarkable. On day of discharge he had minimal left lower quadrant pain and was tolerating diet without difficulty. His nausea and vomiting has since resolved. He remained hemodynamically stable and all concerns were addressed. (3) Insomnia: Discharge Exam Gen: WD/WN, NAD, A&O x3 HEENT: Normocephalic, atraumatic, conjunctivae moist, sclerae anicteric, mucous membranes moist. Lung: Clear to Auscultation bilaterally, no wheezes/rales/rhonchi Heart: Regular rate, regular rhythm, no murmurs, rubs, or gallops Abdomen: Soft, minimal left lower quadrant tenderness to palpation, no rebound or guarding, ND +BS x 4 Extremities: No edema Skin: Warm, no rash, negative turgor. Updated Medication List Medication Instructions Recorded Confirmed Type trazodone 50 mg tablet 50 mg PO UD 10/02/22 10/02/22 History Saccharomyces boulardii 250 mg 250 mg PO DAILY #10 caps 10/03/22 Rx capsule (Florastor) ciprofloxacin HCl 500 mg tablet 500 mg PO Q12H #20 tabs 10/03/22 Rx (Cipro) metronidazole 500 mg tablet 500 mg PO Q8H #30 tabs 10/03/22 Rx Hospital Stay Data Consultations 10/02/22 13:55 ED Decision to Admit Stat 10/02/22 15:15 Consult General Surgery Routine Diagnostic Imagining Performed Abdomen/Pelvis CT 10/02/22 09:[address] WITH IV CONTRAST CT DOSE: 323.43 mGy.cm HISTORY: Acute lower abdominal pain patient with history of colonic diverticulosis lower abd pain b/l TECHNIQUE: Multiaxial CT images of the abdomen and pelvis were performed following the IV administration of 89 cc of Optiray, A dose lowering technique was utilized adhering to the principles of ALARA. COMPARISON STUDY: None. FINDINGS: Clear lung bases. Unremarkable spleen, pancreas, gallbladder, adrenal glands and liver. Patency of the hepatic and portal veins. A millimeter cyst within the inferior pole left kidney. No hydronephrosis. Mild urinary bladder wall thickening with partial distention. Mild prostamegaly. Mild atherosclerosis of the abdominal aorta without aneurysm. No lymphadenopathy. Surgical clips of the scrotum. Trace free pelvic fluid. Colonic diverticulosis. Mild wall thickening the sigmoid colon with trace adjacent inflammatory stranding. There is a small focus of air within the sigmoid colon contiguous with a fluid-filled small sinus tract, image 286. No drainable fluid collection. Scattered small bowel air-fluid levels with a few mildly dilated loops measuring up to 3.3 cm. The appendix appears noninflamed. Unremarkable soft tissues. Severe L5-S1 intervertebral disc space narrowing. There is no acute fracture. IMPRESSION: 1. Mild acute diverticulitis with a small focus of extraluminal gas contiguous with a small sinus tract within the sigmoid mesocolon indicating acute on chronic disease. No drainable abscess. 2. Mildly dilated loops of small bowel with air-fluid levels may represent a reactive ileus or nonspecific enteritis. ACT 112: Negative or not required by law. The above report was generated using voice recognition software. It may contain grammatical, syntax or spelling errors. Electronically signed by: Zeke Levin M.D. 10/02/2022 12:31 PM Chest X-Ray 10/02/22 13:45 SINGLE VIEW CHEST CLINICAL HISTORY: Respiratory illness FINDINGS: An AP, portable, upright chest radiograph is obtained. No prior studies are available for comparison at the time of dictation. The cardiomediastinal silhouette is unremarkable. The lungs and pleural spaces are clear. No pneumothorax is seen. The bony thorax is grossly intact. IMPRESSION: No active disease in the chest. ACT 112: Negative or not required by law. Electronically signed by: Albino Galindo M.D. 10/02/2022 2:13 PM Pending Results Patient Have Any Pending Studies at Discharge: No Discharge Instructions Given to Patient (Per Discharging Provider) MEDICATION CHANGES: Ciprofloxacin 500 mg every twice daily for 10 days, next dose evening of 10/03/2022. Metronidazole 500 mg every 3 times a day for 10 days, next dose evening of 10/03/2022. Take antibiotics in entirety. Florastor 250mg once daily for GI health - This is a probiotic SUMMARY OF TEST RESULTS: You were admitted to hospital due to acute diverticulitis. You were started on IV antibiotics. You were seen by general surgery who recommended 24 hours of IV antibiotics and then additional 10 days of oral antibiotics. You tolerated advance diet prior to discharge. PENDING TEST RESULTS: None RECOMMENDATIONS FOR FOLLOW-UP: Recommend follow-up with primary care provider as scheduled. Complete antibiotics in their entirety. Abstain from alcohol use while taking antibiotics as it can cause a severe reaction. Recommend taking daily probiotic while on antibiotics to protect GI health. You are scheduled for a colonoscopy at the end of October. This will need to be rescheduled/delayed due to your acute diverticulitis episode. Recommend low fiber diet for now. Discuss with your Primary Care Provider when you are able to advance to high fiber diet (this helps preventing diverticulitis when acute flare has resolved). OTHER INSTRUCTIONS: Seek medical attention if you have: * temperature above 101 * chest pain or trouble breathing * abdominal pain, nausea, vomiting * diarrhea, dark stools or bloody stools * any unanswered questions or concerns Call 911 if symptoms are severe. Please take good care of yourself. It has been a pleasure taking care of you. Please take care of yourself. If you have any questions regarding your recent hospitalization please contact [facility] and request Yennifer Bianchiist @ [phone]. Danielle Garcia PA-C Total Time Total Time Spent Total Time Spent (In Minutes): 45 minutes Supervising Physician Co-Signing Physician Notes I have seen and examined the patient independently and discussed with the provider above. Patient tolerated low fiber diet. He denies any abdominal pain or discomfort. Surgery okay for him to get discharged after 24 hours of IV antibiotics. He was prescribed oral Cipro and Flagyl for 10 more days. Outpatient colonoscopy with Dr. Amin
== END 2022-10-03 15:32 | disposition home or self-care (01) | DRG 392 ==
LOC: ED 09:16 → SUATTDRO 14:23 → 3W 14:23

== ENCOUNTER 2023-09-15 15:50 | Observation (INO) ==
--- NOTE | 2023-09-15 16:05 | Emergency Department Note ---
ED Provider Note History of Present Illness Chief Complaint: Abdominal Pain Stated Complaint: ABDOMINAL PAIN, NAUSEA Time Seen by Provider: 09/15/23 16:04 This is a 52-year-old male recently diagnosed with diverticulitis yesterday who returns to the emergency department with worsening symptoms. He states that his pain is worse in the left lower abdomen and has now migrated into the right lower abdomen. He has been having ongoing nausea and now with nonbloody diarrhea, has been unable to eat or drink anything, feels dehydrated. Has had intermittent fevers and sweats. Is taking alternating Tylenol and ibuprofen every 3 hours. Patient was admitted to this facility last year for diverticulitis, has not had any surgeries or diverticulitis. Has not had any other abdominal surgeries. States that his urine production is decreased. Denies any sore throat, sinus congestion, or cough. Home Medications Medication Instructions Recorded Confirmed Type trazodone 50 mg tablet 50 mg PO HS 10/02/22 09/15/23 History amoxicillin 875 mg-potassium 1 tab PO BID #20 tabs 09/14/23 09/15/23 Rx clavulanate 125 mg tablet Allergies Allergy/AdvReac Type Severity Reaction Status Date / Time No Known Allergies Allergy Verified 10/02/22 19:48 Past Med/Surg History Medical History Acute diverticulitis Insomnia GERD (gastroesophageal reflux disease) Depression Surgical History History of colonoscopy with polypectomy Family History Other Diabetes Social History Smoking Status: Never smoker Tobacco Type: Cigarettes and Smokeless Tobacco (Dip or Chew) Second Hand Exposure: No; Do You Dip or Chew Tobacco: No; Hx Alcohol Use: Yes Hx Substance Use: Yes Prescribed Medications: Marijuana Last Used Substance: Days (ago) Preferred Language: Yoruba Communication Ability: Effective Knowledge Engineer Required: No Beliefs That Will Affect Care: None Current Living Situation: Spouse and Family Other Information That Helps Us Care for You: No Feels Safe at Home: Yes Safety Concerns: Feels Safe At This Time Assistive Devices: Glasses Physical Exam Vital Signs Vital Signs - 24 hr 09/15/23 16:02 09/15/23 16:08 09/15/23 17:31 Temperature 98.1 F Temperature Source Temporal Artery Scan Pulse Rate 103 H 90 Pulse Rate from SpO2 Sensor 91 H Respiratory Rate 18 22 Respiratory Effort / Characteristics Non-Labored Spontaneous Respiratory Depth Normal Respiratory Pattern Regular Blood Pressure 157/83 H 134/74 Blood Pressure Mean 107 94 Blood Pressure Position Sitting Pulse Oximetry 98 99 100 Oxygen Delivery Method Room Air Room Air Sepsis Recent Fever Within 48 Hours No Sepsis New/Unexplained Change in Mental Status No Sepsis Action Taken by Nursing No Action Required 09/15/23 17:33 09/15/23 18:00 09/15/23 18:30 Temperature Temperature Source Pulse Rate 91 H 89 89 Pulse Rate from SpO2 Sensor 89 89 Respiratory Rate 17 18 Respiratory Effort / Characteristics Respiratory Depth Respiratory Pattern Blood Pressure 111/71 Blood Pressure Mean 84 Blood Pressure Position Pulse Oximetry 94 96 Oxygen Delivery Method Sepsis Recent Fever Within 48 Hours Sepsis New/Unexplained Change in Mental Status Sepsis Action Taken by Nursing CONSTITUTIONAL: Well developed, well nourished, mildly ill-appearing, in some pain, nontoxic EYES: conjunctivae normal, extraocular muscles intact. No scleral icterus ENMT: External ears normal. Nose with normal external appearance, no congestion. Oral mucous membranes dry. Oropharynx otherwise normal. NECK: Full active range of motion. RESPIRATORY: Breathing unlabored and symmetric. Lungs clear to auscultation bilaterally. No wheeze, rales, or rhonchi. CARDIOVASCULAR: Tachycardic rate and regular rhythm. No murmurs, rubs, or gallops. ABDOMEN: Slightly hypoactive bowel sounds. There is guarding in the lower abdomen with reproducible tenderness in the right lower and left lower abdomen. MUSCULOSKELETAL: Moves all extremities at all joints without pain or difficulty. No cyanosis or edema. SKIN: [place], warm, dry. NEUROLOGIC: Awake, alert, oriented. Gaze is conjugate. Face symmetric, speech normal. Moves head and all four extremities spontaneously. Sensation and strength grossly intact. PSYCHIATRIC: Appropriate. Normal affect Course Administered Medications Hydromorphone HCl (Hydromorphone Inj 0.5 Mg/0.5 Ml Syr) 0.5 mg IV Q6H PRN PRN Reason: Severe Pain (Scale 7, 8, 9,10) Stop: 09/29/23 19:47 Last Admin: 09/16/23 01:01 Dose: 0.5 mg Documented By: ANDI Acetaminophen (Ofirmev) 1,000 mg in 100 mls @ 400 mls/hr IV Q8H PATRICIA Stop: 09/18/23 19:59 Last Admin: 09/16/23 03:50 Dose: 400 mls/hr Documented By: Infusion: 09/15/23 20:54 Dose: Infused Documented By: Admin: 09/15/23 20:23 Dose: 400 mls/hr Documented By: ANDRES Sodium Chloride (Nss) 1,000 mls @ 100 mls/hr IV .Q10H PATRICIA Stop: 10/15/23 20:51 Last Admin: 09/15/23 21:03 Dose: 100 mls/hr Documented By: ANDI Piperacillin Sod/Tazobactam (Sod 4.5 gm/ Dextrose) 100 mls @ 25 mls/hr IV Q8H PATRICIA; Protocol Stop: 09/26/23 00:00 Last Infusion: 09/16/23 04:00 Dose: Infused Documented By: Admin: 09/16/23 00:00 Dose: 25 mls/hr Documented By: ANDI Trazodone HCl (Trazodone Hcl 50 Mg Tab) 50 mg PO HS PATRICIA Stop: 10/15/23 20:59 Last Admin: 09/15/23 21:49 Dose: 50 mg Documented By: ANDI Discontinued Medications Hydromorphone HCl (Hydromorphone Inj 0.5 Mg/0.5 Ml Syr) 0.5 mg IV NOW STA Stop: 09/15/23 17:34 Last Admin: 09/15/23 17:38 Dose: 0.5 mg Documented By: ANDRES Sodium Chloride (Nss) 1,000 mls @ 999 mls/hr IV .Q1H1M ONE Stop: 09/15/23 17:18 Last Infusion: 09/15/23 17:33 Dose: Infused Documented By: Admin: 09/15/23 16:32 Dose: 999 mls/hr Documented By: ANDRES Piperacillin Sod/Tazobactam Sod (Zosyn) 4.5 gm in 100 mls @ 200 mls/hr IV NOW ONE Stop: 09/15/23 18:22 Last Infusion: 09/15/23 19:44 Dose: Infused Documented By: Admin: 09/15/23 18:51 Dose: 200 mls/hr Documented By: ANDRES Ioversol (Optiray 320 500ml) 92 ml IV ONCE ONE Stop: 09/15/23 17:21 Last Admin: 09/15/23 17:20 Dose: 92 ml Documented By: EDK Morphine Sulfate (Morphine Sulfate 4 Mg/Ml 1 Ml Carp\Vial) 4 mg IV NOW STA Stop: 09/15/23 16:19 Last Admin: 09/15/23 16:32 Dose: 4 mg Documented By: BS Ondansetron HCl (Ondansetron Inj 2 Mg/Ml 2 Ml Vial) 4 mg IV NOW STA Stop: 09/15/23 16:19 Last Admin: 09/15/23 16:32 Dose: 4 mg Documented By: ANDRES Medical Decision Making Differential Diagnosis Diverticulitis, abscess, perforation, appendicitis, medication side effect, sepsis, dehydration, electrolyte imbalance, among other pathology Medical Records Attestation: I reviewed the patient's medical records. (Reviewed prior ED notes and imaging. Reviewed prior admission notes from 1 year prior.) Laboratory Data 09/15/23 16:30 09/15/23 16:30 Lab Results 09/15/23 09/15/23 Range/Units 16:30 16:38 WBC 11.96 H (4.8-10.8) K/ul RBC 4.64 L (4.70-6.10) M/uL Hgb 14.2 (14.0-18.0) g/dl Hct 39.1 L (42.0-52.0) % MCV 84.3 (80.0-100.0) fL MCH 30.6 (25.0-34.0) pg MCHC 36.3 H (32.0-36.0) g/dL RDW Std Deviation 37.7 (36.4-46.3) fL RDW Coeff of Daniele 12.4 (11.5-14.5) % Plt Count 204 (130-400) K/uL MPV 8.9 L (9.4-12.4) fL Immature Gran % (Auto) 0.3 % Neut % (Auto) 91.7 % Lymph % (Auto) 3.4 % Evangeline % (Auto) 4.5 % Eos % (Auto) 0.0 % Baso % (Auto) 0.1 % Neut # (Auto) 10.96 H (1.40-6.50) K/uL Lymph # (Auto) 0.41 L (1.20-3.40) K/uL Evangeline # (Auto) 0.54 (0.11-0.59) K/uL Eos # (Auto) 0.00 (0.00-0.50) K/uL Baso # (Auto) 0.01 (0.00-0.20) K/uL Immature Gran # (Auto) 0.04 (0.01-0.20) K/uL Sodium 136 (136-145) mmol/L Potassium 3.6 (3.5-5.1) mmol/L Chloride 103 (98-107) mmol/L Carbon Dioxide 21 (21-32) mmol/L Anion Gap 12 H (3-11) BUN 11 (6-23) mg/dl Creatinine 1.05 (0.6-1.4) mg/dl Est Cr Clr Drug Dosing 82.3 ml/min Est GFR ( Amer) 94.1 ml/min Est GFR (Non-Af Amer) 81.2 ml/min BUN/Creatinine Ratio 10.5 (10-20) Glucose 119 H (70-99(Fasting)) mg/dl Lactate 1.0 (0.4-2.0) mmol/L Calcium 9.1 (8.6-10.3) mg/dl Total Bilirubin 0.8 (0.2-1.0) mg/dl AST 24 (13-39) U/L ALT 24 (7-52) U/L Alkaline Phosphatase 49 (34-104) U/L Total Protein 7.4 (6.0-8.3) gm/dl Albumin 4.2 (3.4-5.0) gm/dl Globulin 3.2 (2.5-4.0) gm/dl Albumin/Globulin Ratio 1.3 (0.9-2) Lipase 12 (11-82) U/L Procalcitonin 4.03 H (0-0.5) ng/ml Imaging Data Radiologist's Impression: Abdomen/Pelvis CT 09/15/23 16:[address] WITH IV CONTRAST CT DOSE: 896.08 mGy.cm HISTORY: Acute right lower quadrant abdominal pain recent diverticulitis, worsening, now RLQ pain TECHNIQUE: Multiaxial CT images of the abdomen and pelvis were performed following the IV administration of 92 cc of Optiray, A dose lowering technique was utilized adhering to the principles of ALARA. COMPARISON STUDY: 09/14/2023 FINDINGS: The lung bases are clear. The liver, spleen, gallbladder, pancreas, kidneys, and adrenal glands are within normal limits. Atherosclerosis aorta. No lymphadenopathy. Tiny hiatal hernia. Acute sigmoid diverticulitis redemonstrated without abscess. Trace ascites are a few scattered foci of extra luminal air within the pelvis. Progressive inflammation and pelvic fluid. Scattered large and small bowel air-fluid levels with small bowel loops measuring up to 3 cm. No transition point identified. Surgical clips of the scrotum. Noninflamed appendix. No acute fracture. IMPRESSION: 1. Progressively worsened acute sigmoid diverticulitis with a few scattered foci of extraluminal air within the pelvis compatible with perforation. Small amount of pelvic ascites is noted without abscess. 2. Scattered large and small bowel air-fluid levels with mild small bowel distention suggestive of a reactive ileus ACT 112: Negative or not required by law. The above report was generated using voice recognition software. It may contain grammatical, syntax or spelling errors. Electronically signed by: Zeke Levin M.D. 09/15/2023 5:42 PM MDM Narrative 52-year-old male returns to the emergency department after being diagnosed with diverticulitis yesterday. He states that his pain is worse and now migrating into the right lower abdomen. Has not been able to eat or drink due to ongoing nausea, now with diarrhea. Still with intermittent fevers and sweats. See above for further details. Patient does appear to be uncomfortable, certainly nontoxic. He is slightly tachycardic with a heart rate of 103. He is guarding in the lower abdomen. Reproducible tenderness in the right lower and left lower quadrants. Appears to be dry. IV was inserted and labs were obtained. Patient was treated with morphine, Zofran, and IV fluids. Decided to repeat a CT scan to evaluate for the above differential. Labs now with a leukocytosis of 11.9 from 9.7 yesterday. No electrolyte disturbances. Lactate normal. Procalcitonin elevated at 4.03. No JUSTINO. CT abdomen pelvis demonstrates progressively worsening acute sigmoid diverticulitis with few scattered foci of extraluminal air compatible with perforation. No abscess. Reactive ileus. Reevaluated the patient at bedside. His pain had returned and he received a dose of Dilaudid. Remained hemodynamically stable. I called and spoke with Dr. Muñoz (general surgery) regarding the patient's presentation and CT findings. He request that the patient be admitted under the hospitalist service with IV antibiotics. Zosyn was ordered. Patient agreeable with admission. I called and spoke with Marion Sawyer PA-C with [facility] hospitalist group who agrees to admit the patient under Dr. Trimble. Impression Diverticulitis of large intestine with perforation Discharge Plan Visit Data Chief Complaint: Abdominal Pain Stated Complaint: ABDOMINAL PAIN, NAUSEA ED Provider: Patria Condon ED Midlevel Provider: Diogo Hinson Discharge Problem: Diverticulitis of large intestine with perforation Patient Disposition: Admitted As Inpatient Condition: Fair Discharge Instructions Interventions: ED Discharge Assessment Last Done: 09/15/23 21:08 Discharge Problem: Diverticulitis of large intestine with perforation Qualifiers: Diverticulitis bleeding: unspecified bleeding status Qualified Code(s): K57.20 - Diverticulitis of large intestine with perforation and abscess without bleeding
[2023-09-15] MEDS: ONDANSETRON INJ 2 MG/ML 2 ML VIAL IV STA (16:32)
[2023-09-15] MEDS: MoRPHine SULFATE 4 MG/ML 1 ML CARP\\VIAL IV STA (16:32)
[2023-09-15] MEDS: SODIUM CHLORIDE 0.9% 1,000 ML IV ONE (16:32)
[2023-09-15 16:45] LABS: Hematocrit (blood only) 39.1 % (42.0-52.0); Hemoglobin 14.2 g/dl (14.0-18.0); Mean Corpuscular Hemoglobin 30.6 pg (25.0-34.0); Mean Corpuscular Hgb Conc 36.3 g/dL (32.0-36.0); Mean Corpuscular Volume 84.3 fL (80.0-100.0); Mean Platelet Volume 8.9 fL (9.4-12.4); Platelet Count 204 K/uL (130-400); RDW Coefficient of Variation 12.4 % (11.5-14.5); RDW Standard Deviation 37.7 fL (36.4-46.3); Red Blood Count 4.64 M/uL (4.70-6.10); White Blood Count 11.96 K/ul (4.8-10.8)
[2023-09-15 17:01] LABS: Albumin Globulin Ratio 1.3 (0.9-2); Albumin Level 4.2 gm/dl (3.4-5.0); BUN Creatinine Ratio 10.5 (10-20); Bilirubin,Total 0.8 mg/dl (0.2-1.0); Calcium 9.1 mg/dl (8.6-10.3); Creatinine Clr Calc Pharmacy 82.3 ml/min; Est GFR (African American) 94.1 ml/min; Est GFR (Non-African American) 81.2 ml/min; Globulin 3.2 gm/dl (2.5-4.0); Potassium 3.6 mmol/L (3.5-5.1); Total Protein 7.4 gm/dl (6.0-8.3)
[2023-09-15 17:04] LABS: Basophils # (auto) 0.01 K/uL (0.00-0.20); Basophils % (auto) 0.1 %; Immature Granulocytes # (auto) 0.04 K/uL (0.01-0.20); Immature Granulocytes % (auto) 0.3 %; Lymphocytes # (auto) 0.41 K/uL (1.20-3.40); Lymphocytes % (auto) 3.4 %; Monocytes # (auto) 0.54 K/uL (0.11-0.59); Monocytes % (auto) 4.5 %; Neutrophils # (auto) 10.96 K/uL (1.40-6.50); Neutrophils % (auto) 91.7 %
[2023-09-15] MEDS: OPTIRAY 320 500ml IV ONE (17:20)
[2023-09-15] MEDS: HYDROmorphone INJ 0.5 MG/0.5 ML SYR IV STA (17:38)
--- NOTE | 2023-09-15 17:44 | CT Scan Report ---
ABDOMEN AND PELVIS CT WITH IV CONTRAST CT DOSE: 896.08 mGy.cm HISTORY: Acute right lower quadrant abdominal pain recent diverticulitis, worsening, now RLQ pain TECHNIQUE: Multiaxial CT images of the abdomen and pelvis were performed following the IV administrat ion of 92 cc of Optiray, A dose lowering technique was utilized adhering to the principles of ALARA. COMPARISON STUDY: 09/14/2023 FINDINGS: The lung bases are clear. The liver, spleen, gallbladder, pancreas, kidneys, and adrenal gl ands are within normal limits. Atherosclerosis aorta. No lymphadenopathy. Tiny hiatal hernia. Acute s igmoid diverticulitis redemonstrated without abscess. Trace ascites are a few scattered foci of extra luminal air within the pelvis. Progressive inflammation and pelvic fluid. Scattered large and small bowel air-fluid levels with small bowel loops measuring up to 3 cm. No transition point identified. S urgical clips of the scrotum. Noninflamed appendix. No acute fracture. IMPRESSION: 1. Progressively worsened acute sigmoid diverticulitis with a few scattered foci of extraluminal air within the pelvis compatible with perforation. Small amount of pelvic ascites is noted without absces s. 2. Scattered large and small bowel air-fluid levels with mild small bowel distention suggestive of a reactive ileus ACT 112: Negative or not required by law. The above report was generated using voice recognition software. It may contain grammatical, syntax o r spelling errors. Electronically signed by: Zeke Levin M.D. 09/15/2023 5:42 PM
--- NOTE | 2023-09-15 18:45 | History & Physical Report ---
Date of Service September 15, 2023 Assessment & Plan (1) Diverticulitis of large intestine with perforation: (2) Abdominal pain, lower: (3) Insomnia: Plan This is a 52yo M with PMH of diverticulitis, GERD, depression and other medical problems as below who presents with lower abdominal pain since yesterday morning and is found to have acute sigmoid diverticulitis with perforation. Worsening abdominal pain x 2 days with associated nausea, decreased appetite and nonbloody diarrhea VSS, afebrile, mild leukocytosis of 11.96k, lactate WNL, procal 4 CT abd/pelvis with: 1. Progressively worsened acute sigmoid diverticulitis with a few scattered foci of extraluminal air within the pelvis compatible with perforation. Small amount of pelvic ascites is noted without abscess. 2. Scattered large and small bowel air-fluid levels with mild small bowel distention suggestive of a reactive ileus ED provider discussed with Dr. Muñoz, on-call for general surgery- recommends admission for continued IV abx and will see in consult Continue Zosyn, NPO for now, gentle IV fluids, pain control with scheduled IV Tylenol, as needed IV Dilaudid for severe breakthrough pain but trying to limit narcotic use given possible ileus Insomnia Continue home trazodone HS DVT Ppx: SCDs for now Code status: FULL PCP: BALJINDER Bahena Dispo: Admitted to med/surg Patient seen in collaboration with Dr. Trimble. Please see addendum. I spent a total of 60 minutes coordinating, documenting, and providing care for this patient excluding time spent in the performance of separately billed services. History of Present Illness Chief Complaint: abd pain Primary Care Provider: Shawanda Murillo PA-C This is a 52yo M with PMH of diverticulitis, GERD, depression and other medical problems as below who presents with lower abdominal pain since yesterday morning. Did not feel quite right evening but was unable to pinpoint until he woke up Sunday morning with left-sided abdominal pain with associated loss of appetite and nausea. Was seen in the ED last evening and discharged home on Augmentin but pain worsened and patient returned this evening. Pain constant and sharp, most severe in left lower abdomen but is now radiating over the right side. Endorses intermittent fever, ongoing nausea and nonbloody diarrhea. Poor appetite. Has been alternating Tylenol and ibuprofen every 3 hours at home but cannot control pain so came in for further evaluation. History of recurrent diverticulitis including admission last September treated with IV antibiotics but denies any abdominal surgeries. Significant family history of diverticulosis/itis. Has made a lot of dietary changes since then and has not had any additional issues until 2 days ago. Only home medication is trazodone which he uses at night for sleep. Vapes marijuana most nights. Allergies Allergy/AdvReac Type Severity Reaction Status Date / Time No Known Allergies Allergy Verified 10/02/22 19:48 Home Medications Medication Instructions Recorded Confirmed Type trazodone 50 mg tablet 50 mg PO HS 10/02/22 09/15/23 History amoxicillin 875 mg-potassium 1 tab PO BID #20 tabs 09/14/23 09/15/23 Rx clavulanate 125 mg tablet Past Med/Surg History Medical History Acute diverticulitis Insomnia GERD (gastroesophageal reflux disease) Depression Surgical History History of colonoscopy with polypectomy Family History Other Diabetes Social History Smoking Status: Never smoker Tobacco Type: Cigarettes and Smokeless Tobacco (Dip or Chew) Second Hand Exposure: No; Do You Dip or Chew Tobacco: No; Hx Alcohol Use: Yes Hx Substance Use: Yes Prescribed Medications: Marijuana Last Used Substance: Days (ago) Preferred Language: Iranian Communication Ability: Effective Starch Cooker Required: No Beliefs That Will Affect Care: None Current Living Situation: Spouse and Family Other Information That Helps Us Care for You: No Feels Safe at Home: Yes Safety Concerns: Feels Safe At This Time Assistive Devices: Glasses Review of Systems Review of Systems: At least ten systems reviewed and negative except as noted in the HPI. Physical Exam Physical Exam: Please see Dr. Trimble's addendum for physical exam. Results & Data Results & Data Vital Signs (Past 12 Hours) Vital Signs Temp Pulse Resp BP Pulse Ox O2 Del Method 09/15/23 17:33 91 H 09/15/23 17:31 90 22 134/74 100 09/15/23 16:08 99 Room Air 09/15/23 16:02 36.7 C 103 H 18 157/83 H 98 Room Air Laboratory Results Short CBC 09/15/23 Range/Units 16:30 WBC 11.96 H (4.8-10.8) K/ul Hgb 14.2 (14.0-18.0) g/dl Hct 39.1 L (42.0-52.0) % Plt Count 204 (130-400) K/uL BMP 09/15/23 16:30 Sodium 136 Potassium 3.6 Chloride 103 Carbon Dioxide 21 BUN 11 Creatinine 1.05 Glucose 119 H Calcium 9.1 Liver Function 09/15/23 Range/Units 16:30 Total Bilirubin 0.8 (0.2-1.0) mg/dl AST 24 (13-39) U/L ALT 24 (7-52) U/L Alkaline Phosphatase 49 (34-104) U/L Albumin 4.2 (3.4-5.0) gm/dl Diagnostic Findings Abdomen/Pelvis CT 09/15/23 16:[address] WITH IV CONTRAST CT DOSE: 896.08 mGy.cm HISTORY: Acute right lower quadrant abdominal pain recent diverticulitis, worsening, now RLQ pain TECHNIQUE: Multiaxial CT images of the abdomen and pelvis were performed following the IV administration of 92 cc of Optiray, A dose lowering technique was utilized adhering to the principles of ALARA. COMPARISON STUDY: 09/14/2023 FINDINGS: The lung bases are clear. The liver, spleen, gallbladder, pancreas, kidneys, and adrenal glands are within normal limits. Atherosclerosis aorta. No lymphadenopathy. Tiny hiatal hernia. Acute sigmoid diverticulitis redemonstrated without abscess. Trace ascites are a few scattered foci of extra luminal air within the pelvis. Progressive inflammation and pelvic fluid. Scattered large and small bowel air-fluid levels with small bowel loops measuring up to 3 cm. No transition point identified. Surgical clips of the scrotum. Noninflamed appendix. No acute fracture. IMPRESSION: 1. Progressively worsened acute sigmoid diverticulitis with a few scattered foci of extraluminal air within the pelvis compatible with perforation. Small amount of pelvic ascites is noted without abscess. 2. Scattered large and small bowel air-fluid levels with mild small bowel distention suggestive of a reactive ileus ACT 112: Negative or not required by law. The above report was generated using voice recognition software. It may contain grammatical, syntax or spelling errors. Electronically signed by: Zeke Levin M.D. 09/15/2023 5:42 PM Code Status & VTE Plan VTE Prophylaxis Plan VTE Prophylaxis will be ordered: Yes Supervising Physician Co-Signing Physician Notes Attending addendum: The patient was seen and examined in emergency room He has been complaining of abdominal pain the left lower quadrant for the last 3 days He was in emergency room yesterday and was given Augmentin His pain and nausea worsened that he is back to the emergency room today Has had diarrhea but no blood in the stool Has a strong family history of diverticulitis and diverticulosis On examination Lying in bed with some distress Hemodynamically stable Chest-clear to auscultate bilaterally Heart-S1-S2, regular Abdomen-soft, tender in the lower quadrants with rebound tenderness, bowel sound present Extremities-negative for any His admission labs and imaging studies reviewed As acute microperforation of sigmoid diverticulitis Was seen by surgery Zosyn has been started and continue with some IV fluid and give him n.p.o. for tonight Agree with assessment and plan as outlined above by BALJINDER [address] Dr (1) Diverticulitis of large intestine with perforation Diverticulitis bleeding: unspecified bleeding status Qualified Code(s): K57.20 - Diverticulitis of large intestine with perforation and abscess without bleeding
[2023-09-15] MEDS: PIPERACILLIN/TAZOBACTAM 4.5 GM/100 ML BAG IV ONE (18:51)
[2023-09-15] MEDS ORDERED: HYDROmorphone INJ 0.5 MG/0.5 ML SYR IV PRN (19:48)
[2023-09-15] MEDS: ACETAMINOPHEN 1,000 MG/100 ML VIAL IV SCH (20:23)
--- OUTSIDE RECORDS SUMMARY | 2023-09-15 20:40 | External Medical Summary | Summary of Care ---
Author Name Unknown Organization [facility] Address [address] [facility] [place] [address] Phone [phone] Care Team Providers Care Seed Service Advisor Name Role Phone Shawanda Murillo PA-C Primary Care Provider [phone] Reason for Visit * Reason Comments Acute Encounter Details Date Type Department Care Team (Latest Contact Info) Description 09/14/2023 12:00 PM [facility] [address] [place] [address] Alfie Silva CRNP [address] [place] [address] Diverticulitis of colon* Allergies No known active allergiesdocumented as of this encounter (statuses as of 09/14/2023) Medications Medication Sig Dispensed Refills Start Date End Date Status traZODone HCl 50 MG Oral Tablet (Desyrel)Indication s:Depression with anxiety Take 1 Tablet by mouth at bedtime. May take extra half tab a day when traveling to deal with jet lag insomnia. Max of 10 extra doses per month 120 Tablet 2 07/10/2023 Active Ciclopirox 0.77 % External GelIndications:Sudarshan al infection Apply topically to affected area 2 times a day. Apply to skin on abdomen 100 g 0 07/10/2023 Active Ketoconazole 2 % External ShampooIndications: Fungal infection Use as body wash after using the sauna 120 mL 1 07/10/2023 Active documented as of this encounter (statuses as of 09/14/2023) Active Problems Problem Noted Date Diagnosed Date Diverticulosis 02/04/2021 Internal hemorrhoids 02/04/2021 Depression with anxiety 09/24/2019 Other insomnia 09/24/2019 History of colonoscopy with polypectomy 09/24/19 20 Gastroesophageal reflux disease without esophagi tis 09/24/2019 documented as of this encounter (statuses as of 09/14/2023) Resolved Problems Problem Noted Date Diagnosed Date Resolved Date Depression 05/19/2013 09/24/2019 Anxiety state 05/19/2013 09/24/2019 documented as of this encounter (statuses as of 09/14/2023) Immunizations Name Administration Dates Next Due COVID-19 mRNA, LNP-s, No Pre serve, 2-Dose Series (Moderna) 10/12/2020,09/12/2020 TDAP (age 10 and older)(Boostrix) 09/20/2015 documented as of this encounter Social History Tobacco Use Types Packs/Day Years Used Date Smoking Tobacco: Never Smokeless Tobacco: Former Chew Alcohol Use Standard Drinks/Week Comments Not Currently 0 (1 standard drink = 0.6 oz pure alcohol) h/o heavy drinking--none last mth AUDIT-C Answer Date Recorded Frequency of Alcohol Consumption 4 or more times a week 09/24/2019 Average Number of Drinks 10 or more 020 Frequency of Binge Drinking Less than monthly PHQ-2 Answer Date Recorded PHQ-2 Score 1 09/24/2019 Hunger Vital Sign Answer Date Recorded Within the past 12 months, y ou worried that your food would run out before you got the money to buy more. Never true 10/11/19 23 Within the past 12 months, t he food you bought just didn't last and you didn't have money to get more. Never true 10/10/2022 Sex and Gender Information Value Date Recorded Sex Assigned at Male 08/27/2019 11:11 AM EST Gender Identity Male 08/27/2019 11:11 AM EST Sexual Orientation Straight 08/27/2019 11 :11 AM EST Job Start Date Occupation Industry Not on file Not on file Not on file documented as of this encounter Progress Notes * Alfie Silva CRNP - 09/14/2023 12:06 PM EST Images from the original note were not included. History of Present Illness Patient location: HOME. I was in a hospital or clinic location. After connecting through televideo,patient was verified with two unique identifiers. Patient (or authorized legal medical customer service representative) was then informed that this was a Telemedicine visit and being conducted confidentially over secure lines. Methods to assure confidentiality were taken. Patient acknowledged consent and understanding of pr ivacy and security of the Telemedicine visit. The patient agreed to participate. Abdominal pain - Pt complains of left lower abdominal pain that started yesterday. Pain started getting progressively worse. This morning at 3:00 pain became increasingly worse. Pt had low grade fever last night. Pt has a long history of diverticulitis and states feels exactly like another attack. Last meal was yesterday at 4:00 p.m.. Since then pt has just been drinking water. Denies any N/V. No blood in urine or stool. Pt tool 1000 mg tylenol one hour ago. Prior to tylenol, pain was at a 5. Now pain is essentially 0. Unfortunately, I am unable to do a physical exam on the patient due to telehealth visit. However I did recommend that patient gets a CT scan done to assess for diagnosis of diverticulitis and assessment of severity of diverticulitis. This would help determine whether there are any perforations abscesses or fistulas and whether we can treat outpatient or if he should be treated inpatient. Patient prefers to forego this at this time. Does not want any imaging at this time. Patient was requesting antibiotics at this time. Based on the most up-to-date studies and the DINAMO trial, it is recommended not to use antibioticsfor outpatient treatment of diverticulitis unless there are major medical comorbidities or immuno compromising conditions. Recommend complete got rest. Only clear liquids at this time for the next several days and then transitioning to soft foods as tolerated. Physical Exam There were no vitals taken for this visit. Assessment and Plan Diverticulitis of colon (Primary) - patient prefers to forego CT at this time - clear liquid diet for the next several days and then increase to soft foods as tolerated - continue taking Tylenol as needed for the fever and pain - per DINAMO trial, antibiotics not warranted at this time - we will follow up with the patient in 3 days - clear ER precautions reviewed with the patient including worsening of pain, fever, blood in stool Wrap-Up Pt is to follow up as need. Will call pt on Sunday to follow up. Pt is to notify us of any concerning or worsening symptoms. Again, ER precautions reviewed with patient. He is to go to the ER this weekend for any worsening symptoms including but not limited to increased abdominal pain, nausea, vomiting, fever, or blood in stool. Pt expresses understanding and satisfaction with plan. Time: I spent a total of 20-29 minutes (exact time 25 mins) on the date of service in preparation, delivery, and documentation of the care provided to Alfie Conti excluding any time spent in the performance of separately billed services. MARCIO Bloom documented in this encounter Plan of Treatment Upcoming Encounters Date Type Department Care Team (Late st Contact Info) Description 07/11/2024 10:00 AM EST Office Visit [facility] [address] [place] [address] Shawanda Murillo PA-C [address] [place] [address] Scheduled Procedures Name Priority Associated Diagnoses Date/Ti me COLONOSCOPY FLEXIBLE PROXIMA L DIAGNOSTIC Recall History of colonic polyps Health Maintenance Due Date Last Done Comments HIV Screening 1985 Hepatitis C Screening 1988 Hepatitis B (1 of 3 - 19+ 3-dose series) 1989 Depression Screening 2020 09/24/2019 Zoster Vaccines (1 of 2) 2020 Lipid Panel 08/02/2022 08/02/2017, 05/21/2013 Diabetes Screening 2022 09/24/2019, 0 08/02/2017, 05/21/2013 COVID-19 Vaccine (3 - 2022-24 season) 2023 10/12/2020, 09/12/2020 Influenza Vaccine (FLU shot) (#1) 2023 DTaP,Tdap,and Td Vaccines (2 - Td or Tdap) 09/19/2025 09/20/2015 COLONOSCOPY-EVERY 5 YRS AGES 18-100 11/10/2027 11/09/2022, 11/09/2022, 08/27/2017, Additional history exists GARDASIL-HPV IMMUNIZATION SERIES Aged Out No longer eligible based on patient's age to complete this topic MENINGOCOCCAL (MENACTRA/MENVEO) Aged Out No longer eligible based on patient's age to complete this topic Pneumococcal Vaccine: Pediatrics (0 to 5 Years) and At-Risk Patients (6 to 64 Years) Aged Out No longer eligible based on patient's age to complete this topic documented as of this encounter Medical Devices Not on filedocumented as of this encounter Visit Diagnoses Diagnosis Diverticulitis of colon- Primary Diverticulitis of colon (without mention of hemorrhage) documented in this encounter Care Teams Seed Service Advisor Relationship Specialty Start Date End Date Shawanda Murillo PA-C [address] [facility] [place] [id number] PCP - General Physician Concrete Crusher Loader Operator 07/05/22 documented as of this encounter
--- NOTE | 2023-09-15 20:44 | Surgery Consultation ---
Date of Consultation September 15, 2023 Assessment & Plan (1) Diverticulitis of large intestine with perforation: microperforation AF VSS no peritoneal findings on exam IV zosyn npo IVF History of Present Illness History of Present Illness This is a 52YO with known diverticulitis treated as an outpatient, he returns with worsening lower abdominal pain since yesterday morning. He has some associated nausea, decreased appetite and diarrhea. He denies any fevers chills or dysuria. A CT shows progressively worsened acute sigmoid diverticulitis with a few scattered foci of extraluminal air within the pelvis compatible with microperforation. He is in some discomfort but his vital signs are stable. Allergies Allergy/AdvReac Type Severity Reaction Status Date / Time No Known Allergies Allergy Verified 10/02/22 19:48 Home Medications Medication Instructions Recorded Confirmed Type trazodone 50 mg tablet 50 mg PO HS 10/02/22 09/15/23 History amoxicillin 875 mg-potassium 1 tab PO BID #20 tabs 09/14/23 09/15/23 Rx clavulanate 125 mg tablet Patient History Medical History Acute diverticulitis Insomnia GERD (gastroesophageal reflux disease) Depression Surgical History History of colonoscopy with polypectomy Family History Other Diabetes Social History Smoking Status: Never smoker Tobacco Type: Cigarettes and Smokeless Tobacco (Dip or Chew) Second Hand Exposure: No; Do You Dip or Chew Tobacco: No; Hx Alcohol Use: No Hx Substance Use: Yes Prescribed Medications: Marijuana Last Used Substance: Days (ago) Preferred Language: Iranian Communication Ability: Effective Horologist Apprentice Required: No Beliefs That Will Affect Care: None Current Living Situation: Family Feels Safe at Home: Yes Assistive Devices: None Review of Systems Constitutional: + anorexia; no fever and no chills Eyes: no problem reported Ear, Nose, Mouth, Throat: no problem reported Respiratory: no cough and no dyspnea Cardiovascular: no chest pain Gastrointestinal: + abdominal pain, + nausea and + change in bowel habits; no vomiting Genitourinary: no dysuria Musculoskeletal: no back pain Integumentary: no problem reported Neurologic: no localized weakness and no generalized weakness Psychiatric: no behavioral changes Endocrine: no fatigue Hematologic / Lymphatic: no easy bleeding and no easy bruising Physical Exam Constitutional: WD/WN, vitals as above Eyes: PERRL, conjunctivae normal, anicteric sclerae ENMT: external ear and nose normal, oropharynx normal Neck: trachea midline Respiratory: normal respiratory effort, lungs clear to auscultation Cardiovascular: RRR, no murmur, no edema Gastrointestinal (Abdomen): Inspection/Auscultation: abdomen normal to inspection and normal bowel sounds; abdomen not distended Pe rcussion/Palpation: + abdomen tender and abdomen soft; no guarding and abdomen not rigid Musculoskeletal: Head/Neck/Chest: normocephalic and head atraumatic Skin: no rashes, warm and dry Results & Data Vital Signs (Past 12 Hours) Vital Signs Temp Pulse Resp BP Pulse Ox O2 Del Method 09/15/23 20:00 86 16 95 09/15/23 19:30 87 22 121/68 97 09/15/23 19:00 87 16 95 09/15/23 18:30 89 18 96 09/15/23 18:00 89 17 111/71 94 09/15/23 17:33 91 H 09/15/23 17:31 90 22 134/74 100 09/15/23 16:08 99 Room Air 09/15/23 16:02 36.7 C 103 H 18 157/83 H 98 Room Air Diagnostic Findings ABDOMEN AND PELVIS CT WITH IV CONTRAST CT DOSE: 896.08 mGy.cm HISTORY: Acute right lower quadrant abdominal pain recent diverticulitis, worsening, now RLQ pain TECHNIQUE: Multiaxial CT images of the abdomen and pelvis were performed following the IV administration of 92 cc of Optiray, A dose lowering technique was utilized adhering to the principles of ALARA. COMPARISON STUDY: 09/14/2023 FINDINGS: The lung bases are clear. The liver, spleen, gallbladder, pancreas, kidneys, and adrenal glands are within normal limits. Atherosclerosis aorta. No lymphadenopathy. Tiny hiatal hernia. Acute sigmoid diverticulitis redemonstrated without abscess. Trace ascites are a few scattered foci of extra luminal air within the pelvis. Progressive inflammation and pelvic fluid. Scattered large and small bowel air-fluid levels with small bowel loops measuring up to 3 cm. No transition point identified. Surgical clips of the scrotum. Noninflamed appendix. No acute fracture. IMPRESSION: 1. Progressively worsened acute sigmoid diverticulitis with a few scattered foci of extraluminal air within the pelvis compatible with perforation. Small amount of pelvic ascites is noted without abscess. 2. Scattered large and small bowel air-fluid levels with mild small bowel distention suggestive of a reactive ileus (1) Diverticulitis of large intestine with perforation Diverticulitis bleeding: unspecified bleeding status Qualified Code(s): K57.20 - Diverticulitis of large intestine with perforation and abscess without bleeding
[2023-09-15] MEDS: SODIUM CHLORIDE 0.9% 1,000 ML IV SCH (21:03)
[2023-09-15 21:45] LABS: Appearance Urine Clear (Clear); Bacteria Urine Automated Negative (Negative); Bilirubin Urine Negative (Negative); Blood Urine 1+ (Negative); Color Urine Yellow; Glucose Urine UA Negative (Negative); Ketones Urine 2+ (Negative); Leukocyte Esterase Urine Negative (Negative); Nitrite Urine Negative (Negative); Protein Urine 1+ (Negative); Specific Gravity Urine > 1.045 (1.000-1.030); Urobilinogen Urine Negative (Negative)
[2023-09-15] MEDS: traZODone HCL 50 MG TAB PO SCH (21:49)
[2023-09-16] MEDS: PIPERACILLIN/TAZOBACTAM 4.5 GM in DEXTROSE 5% MINI-B 100 ML IV SCH
[2023-09-16] MEDS: HYDROmorphone INJ 0.5 MG/0.5 ML SYR IV PRN (01:01)
[2023-09-16] MEDS: FAMOTIDINE 20MG IV PUSH 20 MG/5 ML SYR IV STA (04:15)
[2023-09-16 07:06] LABS: Hematocrit (blood only) 34.3 % (42.0-52.0); Hemoglobin 12.1 g/dl (14.0-18.0); Mean Corpuscular Hemoglobin 30.3 pg (25.0-34.0); Mean Corpuscular Hgb Conc 35.3 g/dL (32.0-36.0); Mean Platelet Volume 8.9 fL (9.4-12.4); Platelet Count 176 K/uL (130-400); RDW Coefficient of Variation 12.7 % (11.5-14.5); RDW Standard Deviation 39.8 fL (36.4-46.3); Red Blood Count 3.99 M/uL (4.70-6.10); White Blood Count 10.95 K/ul (4.8-10.8)
[2023-09-16 07:53] LABS: Albumin Globulin Ratio 1.2 (0.9-2); Albumin Level 3.5 gm/dl (3.4-5.0); BUN Creatinine Ratio 12.6 (10-20); Bilirubin,Total 0.7 mg/dl (0.2-1.0); Calcium 8.6 mg/dl (8.6-10.3); Creatinine Clr Calc Pharmacy 83.9 ml/min; Est GFR (African American) 96.3 ml/min; Est GFR (Non-African American) 83.1 ml/min; Globulin 2.9 gm/dl (2.5-4.0); Potassium 3.9 mmol/L (3.5-5.1); Total Protein 6.4 gm/dl (6.0-8.3)
--- NOTE | 2023-09-16 12:07 | Surgery Progress Note ---
Date of Service September 16, 2023 Assessment & Plan (1) Diverticulitis of large intestine with perforation: Plan: microperforation AF VSS no peritoneal findings on exam IV zosyn/IVF Continue ice chips/sips for now Admission and Anticipated Discharge Date Admission Date: September 15, 2023 Subjective Doing fairly well today. Denies fevers or chills. Denies nausea or vomiting. Less pain. Physical Exam Physical Exam: NAD, A&O x 3 AFVSS Abdomen: Soft, TTP in RLQ and LLQ Results & Data Vital Signs (Past 12 Hours) Vital Signs Temp Pulse Resp BP Pulse Ox O2 Del Method 09/16/23 07:17 36.8 C 75 16 115/67 96 Room Air Laboratory Results 09/16/23 09/15/23 09/15/23 Range/Units 06:58 21:13 16:38 WBC 10.95 H (4.8-10.8) K/ul RBC 3.99 L (4.70-6.10) M/uL Hgb 12.1 L (14.0-18.0) g/dl Hct 34.3 L (42.0-52.0) % MCV 86.0 (80.0-100.0) fL MCH 30.3 (25.0-34.0) pg MCHC 35.3 (32.0-36.0) g/dL RDW Std Deviation 39.8 (36.4-46.3) fL RDW Coeff of Daniele 12.7 (11.5-14.5) % Plt Count 176 (130-400) K/uL MPV 8.9 L (9.4-12.4) fL Immature Gran % (Auto) % Neut % (Auto) % Lymph % (Auto) % [place] % (Auto) % Eos % (Auto) % Baso % (Auto) % Neut # (Auto) (1.40-6.50) K/uL Lymph # (Auto) (1.20-3.40) K/uL [place] # (Auto) (0.11-0.59) K/uL Eos # (Auto) (0.00-0.50) K/uL Baso # (Auto) (0.00-0.20) K/uL Immature Gran # (Auto) (0.01-0.20) K/uL Sodium 137 (136-145) mmol/L Potassium 3.9 (3.5-5.1) mmol/L Chloride 106 (98-107) mmol/L Carbon Dioxide 26 (21-32) mmol/L Anion Gap 5 (3-11) BUN 13 (6-23) mg/dl Creatinine 1.03 (0.6-1.4) mg/dl Est Cr Clr Drug Dosing 83.9 ml/min Est GFR ( Amer) 96.3 ml/min Est GFR (Non-Af Amer) 83.1 ml/min BUN/Creatinine Ratio 12.6 (10-20) Glucose 105 H (70-99(Fasting)) mg/dl Lactate 1.0 (0.4-2.0) mmol/L Calcium 8.6 (8.6-10.3) mg/dl Total Bilirubin 0.7 (0.2-1.0) mg/dl AST 16 (13-39) U/L ALT 17 (7-52) U/L Alkaline Phosphatase 45 (34-104) U/L Total Protein 6.4 (6.0-8.3) gm/dl Albumin 3.5 (3.4-5.0) gm/dl Globulin 2.9 (2.5-4.0) gm/dl Albumin/Globulin Ratio 1.2 (0.9-2) Lipase (11-82) U/L Procalcitonin (0-0.5) ng/ml Urine Color Yellow Urine Appearance Clear (Clear) Urine pH 6.0 (4.5-7.5) Ur Specific [place] > 1.045 H (1.000-1.030) Urine Protein 1+ H (Negative) Urine Glucose (UA) Negative (Negative) Urine Ketones 2+ H (Negative) Urine Blood 1+ H (Negative) Urine Nitrite Negative (Negative) Urine Bilirubin Negative (Negative) Urine Urobilinogen Negative (Negative) Ur Leukocyte Esterase Negative (Negative) Urine WBC (Auto) 1-5 (0-5) /hpf Urine RBC (Auto) 10-30 H (0-4) /hpf U Hyaline Cast (Auto) 1-5 (0-5) /lpf U Epithel Cells (Auto) 5-10 H (0-5) /lpf Urine Bacteria (Auto) Negative (Negative) 09/15/23 Range/Units 16:30 WBC 11.96 H (4.8-10.8) K/ul RBC 4.64 L (4.70-6.10) M/uL Hgb 14.2 (14.0-18.0) g/dl Hct 39.1 L (42.0-52.0) % MCV 84.3 (80.0-100.0) fL MCH 30.6 (25.0-34.0) pg MCHC 36.3 H (32.0-36.0) g/dL RDW Std Deviation 37.7 (36.4-46.3) fL RDW Coeff of Daniele 12.4 (11.5-14.5) % Plt Count 204 (130-400) K/uL MPV 8.9 L (9.4-12.4) fL Immature Gran % (Auto) 0.3 % Neut % (Auto) 91.7 % Lymph % (Auto) 3.4 % [place] % (Auto) 4.5 % Eos % (Auto) 0.0 % Baso % (Auto) 0.1 % Neut # (Auto) 10.96 H (1.40-6.50) K/uL Lymph # (Auto) 0.41 L (1.20-3.40) K/uL [place] # (Auto) 0.54 (0.11-0.59) K/uL Eos # (Auto) 0.00 (0.00-0.50) K/uL Baso # (Auto) 0.01 (0.00-0.20) K/uL Immature Gran # (Auto) 0.04 (0.01-0.20) K/uL Sodium 136 (136-145) mmol/L Potassium 3.6 (3.5-5.1) mmol/L Chloride 103 (98-107) mmol/L Carbon Dioxide 21 (21-32) mmol/L Anion Gap 12 H (3-11) BUN 11 (6-23) mg/dl Creatinine 1.05 (0.6-1.4) mg/dl Est Cr Clr Drug Dosing 82.3 ml/min Est GFR ( Amer) 94.1 ml/min Est GFR (Non-Af Amer) 81.2 ml/min BUN/Creatinine Ratio 10.5 (10-20) Glucose 119 H (70-99(Fasting)) mg/dl Lactate (0.4-2.0) mmol/L Calcium 9.1 (8.6-10.3) mg/dl Total Bilirubin 0.8 (0.2-1.0) mg/dl AST 24 (13-39) U/L ALT 24 (7-52) U/L Alkaline Phosphatase 49 (34-104) U/L Total Protein 7.4 (6.0-8.3) gm/dl Albumin 4.2 (3.4-5.0) gm/dl Globulin 3.2 (2.5-4.0) gm/dl Albumin/Globulin Ratio 1.3 (0.9-2) Lipase 12 (11-82) U/L Procalcitonin 4.03 H (0-0.5) ng/ml Urine Color Urine Appearance (Clear) Urine pH (4.5-7.5) Ur Specific [place] (1.000-1.030) Urine Protein (Negative) Urine Glucose (UA) (Negative) Urine Ketones (Negative) Urine Blood (Negative) Urine Nitrite (Negative) Urine Bilirubin (Negative) Urine Urobilinogen (Negative) Ur Leukocyte Esterase (Negative) Urine WBC (Auto) (0-5) /hpf Urine RBC (Auto) (0-4) /hpf U Hyaline Cast (Auto) (0-5) /lpf U Epithel Cells (Auto) (0-5) /lpf Urine Bacteria (Auto) (Negative) (1) Diverticulitis of large intestine with perforation Diverticulitis bleeding: unspecified bleeding status Qualified Code(s): K57.20 - Diverticulitis of large intestine with perforation and abscess without bleeding
[2023-09-16] MEDS: ONDANSETRON INJ 2 MG/ML 2 ML VIAL IV PRN (14:09)
[2023-09-16] MEDS: HYDROmorphone INJ 0.5 MG/0.5 ML SYR IV STA (16:21)
--- NOTE | 2023-09-16 16:34 | Hospitalist Progress Note ---
Date of Service September 16, 2023 Assessment & Plan (1) Diverticulitis of large intestine with perforation: (2) Abdominal pain, lower: (3) Insomnia: Plan This is a 52yo M with PMH of diverticulitis, GERD, depression and other medical problems as below who presents with lower abdominal pain since yesterday morning and is found to have acute sigmoid diverticulitis with perforation. Worsening abdominal pain x 2 days with associated nausea, decreased appetite and nonbloody diarrhea VSS, afebrile, mild leukocytosis of 11.96k, lactate WNL, procal 4 CT abd/pelvis with: 1. Progressively worsened acute sigmoid diverticulitis with a few scattered foci of extraluminal air within the pelvis compatible with perforation. Small amount of pelvic ascites is noted without abscess. 2. Scattered large and small bowel air-fluid levels with mild small bowel distention suggestive of a reactive ileus ED provider discussed with Dr. Muñoz, on-call for general surgery- recommends admission for continued IV abx and will see in consult Continue Zosyn, NPO for now, gentle IV fluids, pain control with scheduled IV Tylenol, as needed IV Dilaudid for severe breakthrough pain but trying to limit narcotic use given possible ileus Clinically much better this morning Still has lower abdominal pain without nausea and or vomiting Bowel has not moved yet and the pain seems to be under control Appreciate surgery input and recommendation Will continue n.p.o., IV fluid, pain medications and medicines for nausea and vomiting for today Monitor blood counts and clinical status tomorrow Insomnia Continue home trazodone HS DVT Ppx: SCDs for now Code status: FULL PCP: BALJINDER Bahena Dispo: Admitted to med/surg Admission and Anticipated Discharge Date Admission Date: September 15, 2023 Subjective 09/16/2023 The patient was seen and examined in medical floor He has been stable and feeling better since admission with minimal abdominal pain and no nausea no vomiting No fever and or chills Has had more pain this afternoon Review of Systems Review of Systems: All systems reviewed and are unremarkable except as noted below Physical Exam Physical Exam: Lying in bed with minimal distress due to abdominal discomfort Constitutional: + ill appearing and average body habitus Eyes: PERRL, conjunctivae normal, anicteric sclerae ENMT: external ear and nose normal, oropharynx normal Neck: trachea midline, no thyromegaly Respiratory: no respiratory distress Auscultation: lungs clear to auscultation bilaterally Cardiovascular: Rate/Rhythm: regular rate and regular rhythm; not tachycardic Heart Sounds: normal S1 and normal S2; no murmur Extremities: no edema Gastrointestinal (Abdomen): Inspection/Auscultation: normal bowel sounds; abdomen not distended Percussion/Palpation: + abdomen tender (Tender lower quadrants with rebound tenderness but no guarding) and abdomen soft; no guarding and abdomen not rigid Musculoskeletal: No acute arthritis involving any of the joint Neurologic: normal touch/pain/proprioception and moves all extremities; no fo russel motor deficits Psychiatric: A+Ox3, euthymic affect Lymphatic: no cervical or axillary lymphadenopathy Results & Data Results & Data Vital Signs (Past 12 Hours) Vital Signs Temp Pulse Resp BP Pulse Ox O2 Del Method 09/16/23 15:07 36.7 C 74 16 122/72 96 Room Air 09/16/23 07:17 36.8 C 75 16 115/67 96 Room Air Laboratory Results Short CBC 09/15/23 09/16/23 Range/Units 16:30 06:58 WBC 11.96 H 10.95 H (4.8-10.8) K/ul Hgb 14.2 12.1 L (14.0-18.0) g/dl Hct 39.1 L 34.3 L (42.0-52.0) % Plt Count 204 176 (130-400) K/uL BMP 09/15/23 09/16/23 16:30 06:58 Sodium 136 137 Potassium 3.6 3.9 Chloride 103 106 Carbon Dioxide 21 26 BUN 11 13 Creatinine 1.05 1.03 Glucose 119 H 105 H Calcium 9.1 8.6 Liver Function 09/15/23 09/16/23 Range/Units 16:30 06:58 Total Bilirubin 0.8 0.7 (0.2-1.0) mg/dl AST 24 16 (13-39) U/L ALT 24 17 (7-52) U/L Alkaline Phosphatase 49 45 (34-104) U/L Albumin 4.2 3.5 (3.4-5.0) gm/dl Urine 09/15/23 Range/Units 21:13 Urine Color Yellow Urine Appearance Clear (Clear) Urine pH 6.0 (4.5-7.5) Ur Specific [place] > 1.045 H (1.000-1.030) Urine Protein 1+ H (Negative) Urine Glucose (UA) Negative (Negative) Medications Administered Current Inpatient Medications Hydromorphone HCl (Hydromorphone Inj 0.5 Mg/0.5 Ml Syr) 0.5 mg IV Q6H PRN PRN Reason: Severe Pain (Scale 7, 8, 9,10) Stop: 09/29/23 19:47 Last Admin: 09/16/23 14:09 Dose: 0.5 mg Acetaminophen (Ofirmev) 1,000 mg in 100 mls @ 400 mls/hr IV Q8H [facility] Stop: 09/18/23 19:59 Last Infusion: 09/16/23 11:33 Dose: Infused Sodium Chloride (Nss) 1,000 mls @ 100 mls/hr IV .Q10H [facility] Stop: 10/15/23 20:51 Last Admin: 09/16/23 05:51 Dose: 100 mls/hr Piperacillin Sod/Tazobactam (Sod 4.5 gm/ Dextrose) 100 mls @ 25 mls/hr IV Q8H [facility]; Protocol Stop: 09/26/23 00:00 Last Admin: 09/16/23 16:21 Dose: 25 mls/hr Ondansetron HCl (Ondansetron Inj 2 Mg/Ml 2 Ml Vial) 4 mg IV Q6H PRN PRN Reason: Nausea Stop: 10/15/23 20:51 Last Admin: 09/16/23 14:09 Dose: 4 mg Trazodone HCl (Trazodone Hcl 50 Mg Tab) 50 mg PO HS [facility] Stop: 10/15/23 20:59 Last Admin: 09/15/23 21:49 Dose: 50 mg (1) Diverticulitis of large intestine with perforation Diverticulitis bleeding: unspecified bleeding status Qualified Code(s): K57.20 - Diverticulitis of large intestine with perforation and abscess without bleeding
[2023-09-17] MEDS: FAMOTIDINE 20MG IV PUSH 20 MG/5 ML SYR IV ONE (00:20)
--- NOTE | 2023-09-17 06:44 | Surgery Progress Note ---
Date of Service September 17, 2023 Assessment & Plan (1) Diverticulitis of large intestine with perforation: Plan: microperforation AF VSS no peritoneal findings on exam IV zosyn/IVF Advance diet to clears Admission and Anticipated Discharge Date Admission Date: September 15, 2023 Subjective Significant improvement this morning pain. Denies fevers and chills. Denies nausea or vomiting. Physical Exam Physical Exam: NAD, A&O x 3 AFVSS Abdomen: Soft, mild TTP in LLQ Results & Data Vital Signs (Past 12 Hours) Vital Signs Temp Pulse Resp BP Pulse Ox O2 Del Method 09/16/23 19:48 Room Air 09/16/23 19:25 37.6 C H 83 16 121/72 97 Room Air Laboratory Results 09/16/23 Range/Units 06:58 WBC 10.95 H (4.8-10.8) K/ul RBC 3.99 L (4.70-6.10) M/uL Hgb 12.1 L (14.0-18.0) g/dl Hct 34.3 L (42.0-52.0) % MCV 86.0 (80.0-100.0) fL MCH 30.3 (25.0-34.0) pg MCHC 35.3 (32.0-36.0) g/dL RDW Std Deviation 39.8 (36.4-46.3) fL RDW Coeff of Daniele 12.7 (11.5-14.5) % Plt Count 176 (130-400) K/uL MPV 8.9 L (9.4-12.4) fL Sodium 137 (136-145) mmol/L Potassium 3.9 (3.5-5.1) mmol/L Chloride 106 (98-107) mmol/L Carbon Dioxide 26 (21-32) mmol/L Anion Gap 5 (3-11) BUN 13 (6-23) mg/dl Creatinine 1.03 (0.6-1.4) mg/dl Est Cr Clr Drug Dosing 83.9 ml/min Est GFR ( Amer) 96.3 ml/min Est GFR (Non-Af Amer) 83.1 ml/min BUN/Creatinine Ratio 12.6 (10-20) Glucose 105 H (70-99(Fasting)) mg/dl Calcium 8.6 (8.6-10.3) mg/dl Total Bilirubin 0.7 (0.2-1.0) mg/dl AST 16 (13-39) U/L ALT 17 (7-52) U/L Alkaline Phosphatase 45 (34-104) U/L Total Protein 6.4 (6.0-8.3) gm/dl Albumin 3.5 (3.4-5.0) gm/dl Globulin 2.9 (2.5-4.0) gm/dl Albumin/Globulin Ratio 1.2 (0.9-2) (1) Diverticulitis of large intestine with perforation Diverticulitis bleeding: unspecified bleeding status Qualified Code(s): K57.20 - Diverticulitis of large intestine with perforation and abscess without bleeding
[2023-09-17 07:17] LABS: Basophils # (auto) 0.05 K/uL (0.00-0.20); Basophils % (auto) 0.4 %; Eosinophils # (auto) 0.13 K/uL (0.00-0.50); Eosinophils % (auto) 1.1 %; Hematocrit (blood only) 34.5 % (42.0-52.0); Immature Granulocytes # (auto) 0.06 K/uL (0.01-0.20); Immature Granulocytes % (auto) 0.5 %; Lymphocytes # (auto) 0.87 K/uL (1.20-3.40); Lymphocytes % (auto) 7.4 %; Mean Corpuscular Hemoglobin 29.9 pg (25.0-34.0); Mean Corpuscular Hgb Conc 34.8 g/dL (32.0-36.0); Mean Platelet Volume 9.7 fL (9.4-12.4); Monocytes # (auto) 0.78 K/uL (0.11-0.59); Monocytes % (auto) 6.6 %; Neutrophils # (auto) 9.94 K/uL (1.40-6.50); Platelet Count 220 K/uL (130-400); RDW Coefficient of Variation 12.7 % (11.5-14.5); RDW Standard Deviation 39.8 fL (36.4-46.3); Red Blood Count 4.01 M/uL (4.70-6.10); White Blood Count 11.83 K/ul (4.8-10.8)
[2023-09-17 07:48] LABS: BUN Creatinine Ratio 15.4 (10-20); Calcium 8.5 mg/dl (8.6-10.3); Est GFR (African American) 111.9 ml/min; Est GFR (Non-African American) 96.6 ml/min; Magnesium 1.9 mg/dl (1.7-2.4); Phosphorus 1.9 mg/dl (2.5-4.9); Potassium 3.5 mmol/L (3.5-5.1)
[2023-09-17] MEDS ORDERED: POTASSIUM PHOS 3 MMOL/1 ML INFUSION IV STA (09:37)
[2023-09-17] MEDS: POTASSIUM PHOSPHATE 24 MMOL in SODIUM CHLORIDE 0.9% 500 ML IV ONE (10:28)
--- NOTE | 2023-09-17 16:28 | Hospitalist Progress Note ---
Date of Service September 17, 2023 Assessment & Plan (1) Diverticulitis of large intestine with perforation: (2) Abdominal pain, lower: (3) Insomnia: Plan This is a 52yo M with PMH of diverticulitis, GERD, depression and other medical problems as below who presents with lower abdominal pain since yesterday morning and is found to have acute sigmoid diverticulitis with perforation. Worsening abdominal pain x 2 days with associated nausea, decreased appetite and nonbloody diarrhea VSS, afebrile, mild leukocytosis of 11.96k, lactate WNL, procal 4 CT abd/pelvis with: 1. Progressively worsened acute sigmoid diverticulitis with a few scattered foci of extraluminal air within the pelvis compatible with perforation. Small amount of pelvic ascites is noted without abscess. 2. Scattered large and small bowel air-fluid levels with mild small bowel distention suggestive of a reactive ileus ED provider discussed with Dr. Muñoz, on-call for general surgery- recommends admission for continued IV abx and will see in consult Continue Zosyn, NPO for now, gentle IV fluids, pain control with scheduled IV Tylenol, as needed IV Dilaudid for severe breakthrough pain but trying to limit narcotic use given possible ileus Clinically much better this morning Still has lower abdominal pain without nausea and or vomiting Bowel has not moved yet and the pain seems to be under control Appreciate surgery input and recommendation Will continue n.p.o., IV fluid, pain medications and medicines for nausea and vomiting for today Monitor blood counts and clinical status tomorrow No evidence of ongoing worsening of infection Clinically not yet better to start oral food-will keep him n.p.o. and continue with IV antibiotic for now Insomnia Continue home trazodone HS DVT Ppx: SCDs for now Code status: FULL PCP: BALJINDER Bahena Dispo: Admitted to med/surg Admission and Anticipated Discharge Date Admission Date: September 15, 2023 Subjective 09/16/2023 The patient was seen and examined in medical floor He has been stable and feeling better since admission with minimal abdominal pain and no nausea no vomiting No fever and or chills Has had more pain this afternoon 09/17/2023 The patient was seen and examined in medical floor He is feeling a little better but he still has abdominal pain especially with any thing by mouth Advised to be n.p.o. for now No fever and or chills Bowel is not moved Review of Systems Review of Systems: All systems reviewed and are unremarkable except as noted below Physical Exam Physical Exam: Lying in bed with minimal distress due to abdominal discomfort Constitutional: + ill appearing and average body habitus Eyes: PERRL, conjunctivae normal, anicteric sclerae ENMT: external ear and nose normal, oropharynx normal Neck: trachea midline, no thyromegaly Respiratory: no respiratory distress Auscultation: lungs clear to auscultation bilaterally Cardiovascular: Rate/Rhythm: regular rate and regular rhythm; not tachycardic Heart Sounds: normal S1 and normal S2; no murmur Extremities: no edema Gastrointestinal (Abdomen): Inspection/Auscultation: normal bowel sounds; abdomen not distended Percussion/Palpation: + abdomen tender (Tender lower quadrants with rebound tenderness but no guarding) and abdomen soft; no guarding and abdomen not rigid Neurologic: normal touch/pain/proprioception and moves all extremities; no focal motor deficits Psychiatric: A+Ox3, euthymic affect Lymphatic: no cervical or axillary lymphadenopathy Results & Data Results & Data Vital Signs (Past 12 Hours) Vital Signs Temp Pulse Resp BP Pulse Ox O2 Del Method 09/17/23 15:03 36.8 C 69 16 130/77 97 Room Air 09/17/23 07:08 36.6 C 70 16 133/69 99 Room Air Laboratory Results Short CBC 09/17/23 Range/Units 05:58 WBC 11.83 H (4.8-10.8) K/ul Hgb 12.0 L (14.0-18.0) g/dl Hct 34.5 L (42.0-52.0) % Plt Count 220 (130-400) K/uL BMP 09/17/23 05:58 Sodium 137 Potassium 3.5 Chloride 106 Carbon Dioxide 23 BUN 14 Creatinine 0.91 Glucose 83 Calcium 8.5 L Medications Administered Current Inpatient Medications Al Hydrox/Mg Hydrox/Simethicone (Aluminum/Magnesium Susp 30 Ml Udc) 15 ml PO Q6H PRN PRN Reason: Dyspepsia Stop: 10/17/23 16:09 Hydromorphone HCl (Hydromorphone Inj 0.5 Mg/0.5 Ml Syr) 0.5 mg IV Q6H PRN PRN Reason: Severe Pain (Scale 7, 8, 9,10) Stop: 09/29/23 19:47 Last Admin: 09/17/23 12:21 Dose: 0.5 mg Acetaminophen (Ofirmev) 1,000 mg in 100 mls @ 400 mls/hr IV Q8H PATRICIA Stop: 09/18/23 19:59 Last Infusion: 09/17/23 12:46 Dose: Infused Sodium Chloride (Nss) 1,000 mls @ 100 mls/hr IV .Q10H PATRICIA Stop: 10/15/23 20:51 Last Admin: 09/17/23 12:32 Dose: 100 mls/hr Piperacillin Sod/Tazobactam (Sod 4.5 gm/ Dextrose) 100 mls @ 25 mls/hr IV Q8H [facility]; Protocol Stop: 09/26/23 00:00 Last Infusion: 09/17/23 13:01 Dose: Infused Ondansetron HCl (Ondansetron Inj 2 Mg/Ml 2 Ml Vial) 4 mg IV Q6H PRN PRN Reason: Nausea Stop: 10/15/23 20:51 Last Admin: 09/17/23 09:12 Dose: 4 mg Trazodone HCl (Trazodone Hcl 50 Mg Tab) 50 mg PO HS PATRICIA Stop: 10/15/23 20:59 Last Admin: 09/16/23 21:00 Dose: Not Given (1) Diverticulitis of large intestine with perforation Diverticulitis bleeding: unspecified bleeding status Qualified Code(s): K57.20 - Diverticulitis of large intestine with perforation and abscess without bleeding
[2023-09-17] MEDS: ALUMINUM/MAGNESIUM SUSP 30 ML UDC PO PRN (17:18)
[2023-09-18 08:51] LABS: Basophils # (auto) 0.06 K/uL (0.00-0.20); Basophils % (auto) 0.6 %; Eosinophils # (auto) 0.29 K/uL (0.00-0.50); Eosinophils % (auto) 2.7 %; Hematocrit (blood only) 34.5 % (42.0-52.0); Hemoglobin 12.1 g/dl (14.0-18.0); Immature Granulocytes # (auto) 0.11 K/uL (0.01-0.20); Lymphocytes # (auto) 1.19 K/uL (1.20-3.40); Lymphocytes % (auto) 10.9 %; Mean Corpuscular Hgb Conc 35.1 g/dL (32.0-36.0); Mean Corpuscular Volume 85.4 fL (80.0-100.0); Monocytes # (auto) 0.85 K/uL (0.11-0.59); Monocytes % (auto) 7.8 %; Platelet Count 273 K/uL (130-400); RDW Coefficient of Variation 12.9 % (11.5-14.5); RDW Standard Deviation 39.8 fL (36.4-46.3); Red Blood Count 4.04 M/uL (4.70-6.10)
[2023-09-18 09:10] LABS: Calcium 8.4 mg/dl (8.6-10.3); Est GFR (Non-African American) 102.7 ml/min; Magnesium 1.8 mg/dl (1.7-2.4); Phosphorus 2.6 mg/dl (2.5-4.9); Potassium 3.4 mmol/L (3.5-5.1)
--- NOTE | 2023-09-18 10:20 | Surgery Progress Note ---
Date of Service September 18, 2023 Assessment & Plan (1) Diverticulitis of large intestine with perforation: Plan: microperforation AF VSS no peritoneal findings on exam IV zosyn/IVF Nausea and dyspepsia -likely multifactorial could be related to ileus as seen on CT scan secondary to the diverticulitis as well as GI distress from antibitiocs. Plan: Continue IV Zosyn Daily pepcid and maalox prn continue clears for today continue medical management Discussed with Dr. Silva who agrees with above Admission and Anticipated Discharge Date Admission Date: September 15, 2023 Supervising Physician Co-Signing Physician Notes I have seen and examined the patient agree with above assessment plan. In brief, he is slowly improving. He does still have some mild tenderness to palpation in the left lower quadrant. We will continue the IV Zosyn. Continue clear liquid diet. Hopefully tomorrow we will transition to oral meds and will be able to discharge him to home. Subjective not feeling great today having nausea and heartburn/reflux with the clear liquids pain now in mid upper abdomen not so much in lower abdomen passing flatus and liquid bowel movements no chills Physical Exam Constitutional: WD/WN, vitals as above cooperative and comfortable; no acute distress and not ill appearing Gastrointestinal (Abdomen): Inspection/Auscultation: abdomen normal to inspection; abdomen not distended Percussion/Palpation: + abdomen tender (epigastrium) and abdomen soft; no guarding, abdomen not rigid and abdomen not firm Skin: no rashes, warm and dry Psychiatric: Orientation: alert and oriented x 3 Results & Data Vital Signs (Past 12 Hours) Vital Signs Temp Pulse Resp BP Pulse Ox O2 Del Method 09/18/23 06:22 36.9 C 68 18 131/79 96 Room Air Laboratory Results 09/18/23 Range/Units 08:22 WBC 10.90 H (4.8-10.8) K/ul RBC 4.04 L (4.70-6.10) M/uL Hgb 12.1 L (14.0-18.0) g/dl Hct 34.5 L (42.0-52.0) % MCV 85.4 (80.0-100.0) fL MCH 30.0 (25.0-34.0) pg MCHC 35.1 (32.0-36.0) g/dL RDW Std Deviation 39.8 (36.4-46.3) fL RDW Coeff of Daniele 12.9 (11.5-14.5) % Plt Count 273 (130-400) K/uL MPV 9.0 L (9.4-12.4) fL Immature Gran % (Auto) 1.0 % Neut % (Auto) 77.0 % Lymph % (Auto) 10.9 % [place] % (Auto) 7.8 % Eos % (Auto) 2.7 % Baso % (Auto) 0.6 % Neut # (Auto) 8.40 H (1.40-6.50) K/uL Lymph # (Auto) 1.19 L (1.20-3.40) K/uL [place] # (Auto) 0.85 H (0.11-0.59) K/uL Eos # (Auto) 0.29 (0.00-0.50) K/uL Baso # (Auto) 0.06 (0.00-0.20) K/uL Immature Gran # (Auto) 0.11 (0.01-0.20) K/uL Sodium 139 (136-145) mmol/L Potassium 3.4 L (3.5-5.1) mmol/L Chloride 107 (98-107) mmol/L Carbon Dioxide 23 (21-32) mmol/L Anion Gap 9 (3-11) BUN 8 (6-23) mg/dl Creatinine 0.80 (0.6-1.4) mg/dl Est Cr Clr Drug Dosing 108.0 ml/min Est GFR ( Amer) 119.0 ml/min Est GFR (Non-Af Amer) 102.7 ml/min BUN/Creatinine Ratio 10.0 (10-20) Glucose 88 (70-99(Fasting)) mg/dl Calcium 8.4 L (8.6-10.3) mg/dl Phosphorus 2.6 (2.5-4.9) mg/dl Magnesium 1.8 (1.7-2.4) mg/dl (1) Diverticulitis of large intestine with perforation Diverticulitis bleeding: unspecified bleeding status Qualified Code(s): K57.20 - Diverticulitis of large intestine with perforation and abscess without bleeding
[2023-09-18] MEDS: NSS + 20MEQ KCL 20 MEQ/1,000 ML BAG IV SCH (12:46)
--- NOTE | 2023-09-18 16:04 | Hospitalist Progress Note ---
Date of Service September 18, 2023 Assessment & Plan (1) Diverticulitis of large intestine with perforation: (2) Abdominal pain, lower: (3) Insomnia: Plan This is a 52yo M with PMH of diverticulitis, GERD, depression and other medical problems as below who presents with lower abdominal pain since yesterday morning and is found to have acute sigmoid diverticulitis with perforation. Worsening abdominal pain x 2 days with associated nausea, decreased appetite and nonbloody diarrhea VSS, afebrile, mild leukocytosis of 11.96k, lactate WNL, procal 4 CT abd/pelvis with: 1. Progressively worsened acute sigmoid diverticulitis with a few scattered foci of extraluminal air within the pelvis compatible with perforation. Small amount of pelvic ascites is noted without abscess. 2. Scattered large and small bowel air-fluid levels with mild small bowel distention suggestive of a reactive ileus ED provider discussed with Dr. Muñoz, on-call for general surgery- recommends admission for continued IV abx and will see in consult Continue Zosyn, NPO for now, gentle IV fluids, pain control with scheduled IV Tylenol, as needed IV Dilaudid for severe breakthrough pain but trying to limit narcotic use given possible ileus Clinically much better this morning Still has lower abdominal pain without nausea and or vomiting Bowel has not moved yet and the pain seems to be under control Appreciate surgery input and recommendation Will continue n.p.o., IV fluid, pain medications and medicines for nausea and vomiting for today Monitor blood counts and clinical status tomorrow No evidence of ongoing worsening of infection Clinically not yet better to start oral food-will keep him n.p.o. and continue with IV antibiotic for now A little better today without fever and or chills Not tolerating advance diet so we will continue with clears orally for today No abdominal bloating and bowel has been moving Advised to ambulate with caution Insomnia Continue home trazodone HS DVT Ppx: SCDs for now Code status: FULL PCP: BALJINDER Bahena Dispo: Admitted to med/surg Admission and Anticipated Discharge Date Admission Date: September 15, 2023 Subjective 09/16/2023 The patient was seen and examined in medical floor He has been stable and feeling better since admission with minimal abdominal pain and no nausea no vomiting No fever and or chills Has had more pain this afternoon 09/17/2023 The patient was seen and examined in medical floor He is feeling a little better but he still has abdominal pain especially with any thing by mouth Advised to be n.p.o. for now No fever and or chills Bowel is not moved 09/18/2023 The patient was seen and examined in medical floor He has been feeling a little better today Still cannot tolerate any food Advised to take it slow and only take clears orally as tolerated No fever and or chills, abdomen is soft and mildly tender without any distention Review of Systems Review of Systems: All systems reviewed and are unremarkable except as noted below Physical Exam Physical Exam: Lying in bed with minimal distress due to abdominal discomfort Constitutional: + ill appearing and average body habitus Eyes: PERRL, conjunctivae normal, anicteric sclerae ENMT: external ear and nose normal, oropharynx normal Neck: trachea midline, no thyromegaly Respiratory: no respiratory distress Auscultation: lungs clear to auscultation bilaterally Cardiovascular: Rate/Rhythm: regular rate and regular rhythm; not tachycardic Heart Sounds: normal S1 and normal S2; no murmur Extremities: no edema Gastrointestinal (Abdomen): Inspection/Auscultation: normal bowel sounds; abdomen not distended Percussion/Palpation: + abdomen tender (Tender lower quadrants with rebound tenderness but no guarding) and abdomen soft; no guarding and abdomen not rigid Neurologic: normal touch/pain/proprioception and moves all extremities; no focal motor deficits Psychiatric: A+Ox3, euthymic affect Lymphatic: no cervical or axillary lymphadenopathy Results & Data Results & Data Vital Signs (Past 12 Hours) Vital Signs Temp Pulse Resp BP Pulse Ox O2 Del Method 09/18/23 06:22 36.9 C 68 18 131/79 96 Room Air Laboratory Results Short CBC 09/18/23 Range/Units 08:22 WBC 10.90 H (4.8-10.8) K/ul Hgb 12.1 L (14.0-18.0) g/dl Hct 34.5 L (42.0-52.0) % Plt Count 273 (130-400) K/uL BMP 09/18/23 08:22 Sodium 139 Potassium 3.4 L Chloride 107 Carbon Dioxide 23 BUN 8 Creatinine 0.80 Glucose 88 Calcium 8.4 L Medications Administered Current Inpatient Medications Al Hydrox/Mg Hydrox/Simethicone (Aluminum/Magnesium Susp 30 Ml Udc) 15 ml PO Q6H PRN PRN Reason: Dyspepsia Stop: 10/17/23 16:09 Last Admin: 09/18/23 15:27 Dose: 15 ml Hydromorphone HCl (Hydromorphone Inj 0.5 Mg/0.5 Ml Syr) 0.5 mg IV Q6H PRN PRN Reason: Severe Pain (Scale 7, 8, 9,10) Stop: 09/29/23 19:47 Last Admin: 09/17/23 18:43 Dose: 0.5 mg Acetaminophen (Ofirmev) 1,000 mg in 100 mls @ 400 mls/hr IV Q8H PATRICIA Stop: 09/18/23 19:59 Last Infusion: 09/18/23 12:47 Dose: Infused Piperacillin Sod/Tazobactam (Sod 4.5 gm/ Dextrose) 100 mls @ 25 mls/hr IV Q8H PATRICIA; Protocol Stop: 09/26/23 00:00 Last Admin: 09/18/23 15:28 Dose: 25 mls/hr Potassium Chloride/Sodium Chloride (Normal Saline W/20 Meq Kcl) 20 meq in 1,000 mls @ 100 mls/hr IV .Q10H PATRICIA; Protocol Stop: 10/18/23 10:44 Last Admin: 09/18/23 12:46 Dose: 100 mls/hr Famotidine (Pepcid 20mg Iv Push) 20 mg in 5 mls @ 2.5 mls/min IV Q12H PATRICIA Stop: 10/18/23 15:29 Ondansetron HCl (Ondansetron Inj 2 Mg/Ml 2 Ml Vial) 4 mg IV Q6H PRN PRN Reason: Nausea Stop: 10/15/23 20:51 Last Admin: 09/18/23 12:24 Dose: 4 mg Trazodone HCl (Trazodone Hcl 50 Mg Tab) 50 mg PO HS PATRICIA Stop: 10/15/23 20:59 Last Admin: 09/17/23 20:10 Dose: 50 mg (1) Diverticulitis of large intestine with perforation Diverticulitis bleeding: unspecified bleeding status Qualified Code(s): K57.20 - Diverticulitis of large intestine with perforation and abscess without bleeding
[2023-09-18] MEDS: FAMOTIDINE 20MG IV PUSH 20 MG/5 ML SYR IV SCH (16:22)
[2023-09-18] MEDS ORDERED: ACETAMINOPHEN 1,000 MG/100 ML VIAL IV PRN (21:47)
[2023-09-19 06:37] LABS: Basophils # (auto) 0.08 K/uL (0.00-0.20); Basophils % (auto) 0.7 %; Eosinophils # (auto) 0.26 K/uL (0.00-0.50); Eosinophils % (auto) 2.4 %; Hematocrit (blood only) 33.1 % (42.0-52.0); Hemoglobin 11.8 g/dl (14.0-18.0); Immature Granulocytes # (auto) 0.17 K/uL (0.01-0.20); Immature Granulocytes % (auto) 1.6 %; Lymphocytes # (auto) 1.52 K/uL (1.20-3.40); Lymphocytes % (auto) 14.1 %; Mean Corpuscular Hemoglobin 30.4 pg (25.0-34.0); Mean Corpuscular Hgb Conc 35.6 g/dL (32.0-36.0); Mean Corpuscular Volume 85.3 fL (80.0-100.0); Monocytes # (auto) 0.96 K/uL (0.11-0.59); Monocytes % (auto) 8.9 %; Neutrophils # (auto) 7.77 K/uL (1.40-6.50); Neutrophils % (auto) 72.3 %; Platelet Count 292 K/uL (130-400); RDW Coefficient of Variation 12.9 % (11.5-14.5); RDW Standard Deviation 39.9 fL (36.4-46.3); Red Blood Count 3.88 M/uL (4.70-6.10); White Blood Count 10.76 K/ul (4.8-10.8)
[2023-09-19 07:05] LABS: BUN Creatinine Ratio 6.8 (10-20); Calcium 8.3 mg/dl (8.6-10.3); Creatinine Clr Calc Pharmacy 118.4 ml/min; Est GFR (African American) 123.6 ml/min; Est GFR (Non-African American) 106.6 ml/min; Magnesium 1.8 mg/dl (1.7-2.4); Phosphorus 2.2 mg/dl (2.5-4.9); Potassium 3.3 mmol/L (3.5-5.1)
[2023-09-19] MEDS ORDERED: POTASSIUM PHOS 3 MMOL/1 ML INFUSION IV ONE (09:43)
[2023-09-19] MEDS: POTASSIUM PHOSPHATE 21 MMOL in SODIUM CHLORIDE 0.9% 500 ML IV ONE (10:46)
--- NOTE | 2023-09-19 13:15 | Surgery Progress Note ---
Date of Service September 19, 2023 Assessment & Plan (1) Diverticulitis of large intestine with perforation: Plan: microperforation AF VSS minimal abdominal pain tolerating advancing diet Plan: Okay from surgical standpoint for discharge and transition to oral antibiotics for total course of 14 days of IV and oral antibiotics given microperforation low fiber diet Dr. arriola has seen and examined patient. Admission and Anticipated Discharge Date Admission Date: September 15, 2023 Supervising Physician Co-Signing Physician Notes I have seen and examined the patient personally and agree with the above assessment plan. On exam, he has no abdominal tenderness. He is tolerating his diet. Transition to oral antibiotics and discharge to home. He will follow-up as an outpatient. Subjective feeling better minimal lower abdominal pain tolerating full liquids urinating without difficulty passing gas Physical Exam Constitutional: WD/WN, vitals as above no acute distress and not ill appearing Skin: no rashes, warm and dry Psychiatric: A+Ox3, euthymic affect Results & Data Vital Signs (Past 12 Hours) Vital Signs Temp Pulse Pulse Resp BP BP Pulse Ox 09/19/23 11:58 36.9 C 68 63 20 149/87 H 134/76 95 09/19/23 07:30 36.9 C 63 20 134/76 95 O2 Del Method 09/19/23 11:58 09/19/23 07:30 Room Air Laboratory Results 09/19/23 Range/Units 05:55 WBC 10.76 (4.8-10.8) K/ul RBC 3.88 L (4.70-6.10) M/uL Hgb 11.8 L (14.0-18.0) g/dl Hct 33.1 L (42.0-52.0) % MCV 85.3 (80.0-100.0) fL MCH 30.4 (25.0-34.0) pg MCHC 35.6 (32.0-36.0) g/dL RDW Std Deviation 39.9 (36.4-46.3) fL RDW Coeff of Daniele 12.9 (11.5-14.5) % Plt Count 292 (130-400) K/uL MPV 9.0 L (9.4-12.4) fL Immature Gran % (Auto) 1.6 % Neut % (Auto) 72.3 % Lymph % (Auto) 14.1 % [place] % (Auto) 8.9 % Eos % (Auto) 2.4 % Baso % (Auto) 0.7 % Neut # (Auto) 7.77 H (1.40-6.50) K/uL Lymph # (Auto) 1.52 (1.20-3.40) K/uL [place] # (Auto) 0.96 H (0.11-0.59) K/uL Eos # (Auto) 0.26 (0.00-0.50) K/uL Baso # (Auto) 0.08 (0.00-0.20) K/uL Immature Gran # (Auto) 0.17 (0.01-0.20) K/uL Sodium 140 (136-145) mmol/L Potassium 3.3 L (3.5-5.1) mmol/L Chloride 107 (98-107) mmol/L Carbon Dioxide 27 (21-32) mmol/L Anion Gap 6 (3-11) BUN 5 L (6-23) mg/dl Creatinine 0.73 (0.6-1.4) mg/dl Est Cr Clr Drug Dosing 118.4 ml/min Est GFR ( Amer) 123.6 ml/min Est GFR (Non-Af Amer) 106.6 ml/min BUN/Creatinine Ratio 6.8 L (10-20) Glucose 102 H (70-99(Fasting)) mg/dl Calcium 8.3 L (8.6-10.3) mg/dl Phosphorus 2.2 L (2.5-4.9) mg/dl Magnesium 1.8 (1.7-2.4) mg/dl (1) Diverticulitis of large intestine with perforation Diverticulitis bleeding: unspecified bleeding status Qualified Code(s): K 57.20 - Diverticulitis of large intestine with perforation and abscess without bleeding
--- NOTE | 2023-09-19 13:35 | Hospitalist Progress Note ---
Date of Service September 19, 2023 Assessment & Plan (1) Diverticulitis of large intestine with perforation: (2) Abdominal pain, lower: (3) Insomnia: Plan Patient is a 52 yr male with H/O diverticulitis, GERD, depression and other medical problems as below who presents with lower abdominal pain since yesterday morning and is found to have acute sigmoid diverticulitis with perforation. Sepsis-POA Acute sigmoid diverticulitis with microperforation --CT ABD: Progressively worsened acute sigmoid diverticulitis with a few scattered foci of extraluminal air within the pelvis compatible with perforation. Small amount of pelvic ascites is noted without abscess. Scattered large and small bowel air-fluid levels with mild small bowel distention suggestive of a reactive ileus --Blood Cultures: negative to date -- Conservative management per surgery Appreciate surgery input Continue IV Zosyn, transition to p.o. antibiotics on discharge to complete 14- day course of antibiotics Advance to low fiber diet today Advised to follow-up with surgery on discharge Hypokalemia Hypophosphatemia Replete Electrolytes as needed Monitor Insomnia Continue home trazodone HS DVT Px: SCDs for now Code status: FULL CODE Admission and Anticipated Discharge Date Admission Date: September 15, 2023 Subjective Patient is seen and examined at bedside Abdominal pain much improved Denies any nausea, vomiting, chest pain, dyspnea Tolerating current diet Eager to get discharged No other complaints Review of Systems Review of Systems: All systems reviewed & are unremarkable except as noted in Subjective Physical Exam Physical Exam: Physical Exam: Vitals signs as noted above General Appearance:Moderately built and nourished, no apparent distress Head: normocephalic, Atraumatic Eyes: normal inspection, EOMI Neck: supple, Trachea midline Respiratory/Chest: Normal breath sounds, CTA, No accessory muscle use Cardiovascular: S1, S2, No murmur Abdomen/GI:Soft, mild tender, Bowel sounds present Extremities/Musculoskeletal:normal inspection, no edema Neurologic/Psych:AAOX3, grossly no focal neurological deficits Skin: normal color, warm Results & Data Results & Data Vital Signs (Past 12 Hours) Vital Signs Temp Pulse Pulse Resp BP BP Pulse Ox 09/19/23 11:58 36.9 C 68 63 20 149/87 H 134/76 95 09/19/23 07:30 36.9 C 63 20 134/76 95 O2 Del Method 09/19/23 11:58 03/06/24 07:30 Room Air Laboratory Results Short CBC 09/19/23 Range/Units 05:55 WBC 10.76 (4.8-10.8) K/ul Hgb 11.8 L (14.0-18.0) g/dl Hct 33.1 L (42.0-52.0) % Plt Count 292 (130-400) K/uL BMP 09/19/23 05:55 Sodium 140 Potassium 3.3 L Chloride 107 Carbon Dioxide 27 BUN 5 L Creatinine 0.73 Glucose 102 H Calcium 8.3 L (1) Diverticulitis of large intestine with perforation Diverticulitis bleeding: unspecified bleeding status Qualified Code(s): K57.20 - Diverticulitis of large intestine with perforation and abscess without bleeding
--- NOTE | 2023-09-19 13:57 | Discharge Summary ---
Date of Service September 19, 2023 Admission HPI Per Admitting Provider This is a 52yo M with PMH of diverticulitis, GERD, depression and other medical problems as below who presents with lower abdominal pain since yesterday morning. Did not feel quite right evening but was unable to pinpoint until he woke up Sunday morning with left-sided abdominal pain with associated loss of appetite and nausea. Was seen in the ED last evening and discharged home on Augmentin but pain worsened and patient returned this evening. Pain constant and sharp, most severe in left lower abdomen but is now radiating over the right side. Endorses intermittent fever, ongoing nausea and nonbloody diarrhea. Poor appetite. Has been alternating Tylenol and ibuprofen every 3 hours at home but cannot control pain so came in for further evaluation. History of recurrent diverticulitis including admission last September treated with IV antibiotics but denies any abdominal surgeries. Significant family history of diverticulosis/itis. Has made a lot of dietary changes since then and has not had any additional issues until 2 days ago. Only home medication is trazodone which he uses at night for sleep. Vapes marijuana most nights. Admission Exam Per Admitting Provider On examination Lying in bed with some distress Hemodynamically stable Chest-clear to auscultate bilaterally Heart-S1-S2, regular Abdomen-soft, tender in the lower quadrants with rebound tenderness, bowel sound present Extremities-negative for any Principal Diagnosis Sepsis Acute sigmoid diverticulitis with microperforation Discharge Data Allergies Allergy/AdvReac Type Severity Reaction Status Date / Time No Known Allergies Allergy Verified 10/02/22 19:48 Consultations 09/15/23 19:03 ED Decision to Admit Stat 09/15/23 19:51 Consult General Surgery Routine Procedures Performed Laboratory Results WBC 10.76 K/ul (4.8-10.8) 09/19/23 05:55 RBC 3.88 M/uL (4.70-6.10) L 09/19/23 05:55 Hgb 11.8 g/dl (14.0-18.0) L 09/19/23 05:55 Hct 33.1 % (42.0-52.0) L 09/19/23 05:55 MCV 85.3 fL (80.0-100.0) 09/19/23 05:55 MCH 30.4 pg (25.0-34.0) 09/19/23 05:55 MCHC 35.6 g/dL (32.0-36.0) 09/19/23 05:55 RDW Std Deviation 39.9 fL (36.4-46.3) 09/19/23 05:55 RDW Coeff of Daniele 12.9 % (11.5-14.5) 09/19/23 05:55 Plt Count 292 K/uL (130-400) 09/19/23 05:55 MPV 9.0 fL (9.4-12.4) L 09/19/23 05:55 Immature Gran % (Auto) 1.6 % 09/19/23 05:55 Neut % (Auto) 72.3 % 09/19/23 05:55 Lymph % (Auto) 14.1 % 09/19/23 05:55 Mitchell % (Auto) 8.9 % 09/19/23 05:55 Eos % (Auto) 2.4 % 09/19/23 05:55 Baso % (Auto) 0.7 % 09/19/23 05:55 Neut # (Auto) 7.77 K/uL (1.40-6.50) H 09/19/23 05:55 Lymph # (Auto) 1.52 K/uL (1.20-3.40) 09/19/23 05:55 Mitchell # (Auto) 0.96 K/uL (0.11-0.59) H 09/19/23 05:55 Eos # (Auto) 0.26 K/uL (0.00-0.50) 09/19/23 05:55 Baso # (Auto) 0.08 K/uL (0.00-0.20) 09/19/23 05:55 Immature Gran # (Auto) 0.17 K/uL (0.01-0.20) 09/19/23 05:55 Sodium 140 mmol/L (136-145) 09/19/23 05:55 Potassium 3.3 mmol/L (3.5-5.1) L 09/19/23 05:55 Chloride 107 mmol/L (98-107) 09/19/23 05:55 Carbon Dioxide 27 mmol/L (21-32) 09/19/23 05:55 Anion Gap 6 (3-11) 09/19/23 05:55 BUN 5 mg/dl (6-23) L 09/19/23 05:55 Creatinine 0.73 mg/dl (0.6-1.4) 09/19/23 05:55 Est Cr Clr Drug Dosing 118.4 ml/min 09/19/23 05:55 Est GFR ( Amer) 123.6 ml/min 09/19/23 05:55 Est GFR (Non-Af Amer) 106.6 ml/min 09/19/23 05:55 BUN/Creatinine Ratio 6.8 (10-20) L 09/19/23 05:55 Glucose 102 mg/dl (70-99(Fasting)) H 09/19/23 05:55 Lactate 1.0 mmol/L (0.4-2.0) 09/15/23 16:38 Calcium 8.3 mg/dl (8.6-10.3) L 09/19/23 05:55 Phosphorus 2.2 mg/dl (2.5-4.9) L 09/19/23 05:55 Magnesium 1.8 mg/dl (1.7-2.4) 09/19/23 05:55 Total Bilirubin 0.7 mg/dl (0.2-1.0) 09/16/23 06:58 AST 16 U/L (13-39) 09/16/23 06:58 ALT 17 U/L (7-52) 09/16/23 06:58 Alkaline Phosphatase 45 U/L (34-104) 09/16/23 06:58 Total Protein 6.4 gm/dl (6.0-8.3) 09/16/23 06:58 Albumin 3.5 gm/dl (3.4-5.0) 09/16/23 06:58 Globulin 2.9 gm/dl (2.5-4.0) 09/16/23 06:58 Albumin/Globulin Ratio 1.2 (0.9-2) 09/16/23 06:58 Lipase 12 U/L (11-82) 09/15/23 16:30 Procalcitonin 4.03 ng/ml (0-0.5) H 09/15/23 16:30 Urine Color Yellow 09/15/23 21:13 Urine Appearance Clear (Clear) 09/15/23 21:13 Urine pH 6.0 (4.5-7.5) 09/15/23 21:13 Ur Specific [place] > 1.045 (1.000-1.030) H 09/15/23 21:13 Urine Protein 1+ (Negative) H 09/15/23 21:13 Urine Glucose (UA) Negative (Negative) 09/15/23 21:13 Urine Ketones 2+ (Negative) H 09/15/23 21:13 Urine Blood 1+ (Negative) H 09/15/23 21:13 Urine Nitrite Negative (Negative) 09/15/23 21:13 Urine Bilirubin Negative (Negative) 09/15/23 21:13 Urine Urobilinogen Negative (Negative) 09/15/23 21:13 Ur Leukocyte Esterase Negative (Negative) 09/15/23 21:13 Urine WBC (Auto) 1-5 /hpf (0-5) 09/15/23 21:13 Urine RBC (Auto) 10-30 /hpf (0-4) H 09/15/23 21:13 U Hyaline Cast (Auto) 1-5 /lpf (0-5) 09/15/23 21:13 U Epithel Cells (Auto) 5-10 /lpf (0-5) H 09/15/23 21:13 Urine Bacteria (Auto) Negative (Negative) 09/15/23 21:13 Impressions Abdomen/Pelvis CT 09/15/23 16:[address] WITH IV CONTRAST CT DOSE: 896.08 mGy.cm HISTORY: Acute right lower quadrant abdominal pain recent diverticulitis, worsening, now RLQ pain TECHNIQUE: Multiaxial CT images of the abdomen and pelvis were performed following the IV administration of 92 cc of Optiray, A dose lowering technique was utilized adhering to the principles of ALARA. COMPARISON STUDY: 09/14/2023 FINDINGS: The lung bases are clear. The liver, spleen, gallbladder, pancreas, kidneys, and adrenal glands are within normal limits. Atherosclerosis aorta. No lymphadenopathy. Tiny hiatal hernia. Acute sigmoid diverticulitis redemonstrated without abscess. Trace ascites are a few scattered foci of extra luminal air within the pelvis. Progressive inflammation and pelvic fluid. Scattered large and small bowel air-fluid levels with small bowel loops measuring up to 3 cm. No transition point identified. Surgical clips of the scrotum. Noninflamed appendix. No acute fracture. IMPRESSION: 1. Progressively worsened acute sigmoid diverticulitis with a few scattered foci of extraluminal air within the pelvis compatible with perforation. Small amount of pelvic ascites is noted without abscess. 2. Scattered large and small bowel air-fluid levels with mild small bowel distention suggestive of a reactive ileus ACT 112: Negative or not required by law. The above report was generated using voice recognition software. It may contain grammatical, syntax or spelling errors. Electronically signed by: Zeke Levin M.D. 09/15/2023 5:42 PM Ordered Studies 09/15/23 16:19 CT Abd and Pelvis [CT abd pelvis IV con only] Stat Hospital Course (1) Diverticulitis of large intestine with perforation: (2) Abdominal pain, lower: (3) Insomnia: Plan Patient is a 52 yr male with H/O diverticulitis, GERD, depression and other medical problems as below who presents with lower abdominal pain since yesterday morning and is found to have acute sigmoid diverticulitis with perforation. Sepsis-POA Acute sigmoid diverticulitis with microperforation --CT ABD: Progressively worsened acute sigmoid diverticulitis with a few scattered foci of extraluminal air within the pelvis compatible with perforation. Small amount of pelvic ascites is noted without abscess. Scattered large and small bowel air-fluid levels with mild small bowel distention sugge stive of a reactive ileus --Blood Cultures: negative to date -- Conservative management per surgery Appreciate surgery input Continue IV Zosyn, transition to p.o. antibiotics on discharge to complete 14- day course of antibiotics Advance to low fiber diet today Advised to follow-up with surgery on discharge Off note: Patient was recently prescribed Augmentin which patient currently has not used. Advised to complete 10 more days of Augmentin on discharge. Hypokalemia Hypophosphatemia Replete Electrolytes as needed Monitor Insomnia Continue home trazodone HS DVT Px: SCDs for now Code status: FULL CODE Total Time Total Time Spent Total Time Spent (In Minutes): 55 minutes Discharge Plan Discharge Items Patient Disposition: Home - Self-Care Reason For Visit: ACUTE SIGMOID DIVERTICULITIS Discharge Diagnosis: Sepsis Acute sigmoid diverticulitis with microperforation Condition on Discharge: Fair Activity: Per Instructions section Exercise/Sports: Wait until after follow-up appointment Non-emergency contact: Primary Care Provider and Surgeon Call non-emergency contact if: you have any medication questions, your symptoms worsen, your pain is concerning for you and you have a fever Follow-up/Referrals: Shawanda Murillo PA-C [Primary Care Provider] - Diet: Low Fiber Addtl Attending Provider Instructions: Follow-up with your primary care physician Shawanda Murillo PA-C in 1 week Follow-up with your surgeon /Renee Robles as advised. --- Complete antibiotic course Augmentin for 10 more days as prescribed --Your final blood cultures are pending at the time of discharge. Follow-up with your physician for results. Seek immediate medical attention if your symptoms reoccur or worsen Please take all medications as instructed on discharge list below. Please call if you have any questions or problems. You can reach a [facility] hospitalist on duty at [facility] 24 hours a day by calling [phone] Pending Studies at Discharge: Yes Studies:: Blood cultures Stand-Alone Forms: [facility], Smoking Cessation Medications and DC Order Prescriptions: New Phospha 250 Neutral 250 mg Tablet 1 tab PO QID 3 Days Qty: 12 0RF Advanced Probiotic 625 mg (10 billion cell) Capsule 1 cap PO DAILY Qty: 30 0RF oxycodone 5 mg capsule 5 mg PO Q8H PRN (Reason: pain) Qty: 10 0RF Continued trazodone 50 mg tablet 50 mg PO HS amoxicillin-pot clavulanate 875-125 mg tablet 1 tab PO BID Qty: 20 0RF Discharge Orders: Discharge Order (Routine); Ordered 09/19/23 Ordered By: Terrence Garcia Admission Data Admit Date/Time: 09/15/23 18:44 Attending Provider: Terrence Garcia Admit Provider: Jo Trimble Primary Care Provider: Shawanda Murillo Other Providers: Nitesh Muñoz; Jo Trimble Other Interventions: Discharge Summary Assessment (RN) Last Done: 09/19/23 11:58
[2023-09-19] MEDS: POT PHOSPHATE MONOBASIC W/ SOD TAB PO SCH (14:34)
[2023-09-20] MEDS ORDERED: ADVANCED PROBIOTIC 625 MG CAPSULE PO SCH (09:00)
== END 2023-09-19 14:37 | disposition home or self-care (01) | DRG 872 ==
LOC: ED 15:50 → 3N 18:44 → INTOOBSV 18:44 → SUATTDRO 18:44 → 3N 21:08